=== PATIENT | female | born 1985 | race Caucasian/White ===

== ENCOUNTER 2016-10-05 15:13 | Emergency (ER) | payer SELFPAY ==
[2016-10-05] MEDS ORDERED: LIDOCAINE 2% VISCOUS SOLN 20 ML UDCUP PO ONE (15:37)
[2016-10-05] MEDS ORDERED: METOCLOPRAMIDE HCL ORAL SOLN 10 MG/10 ML UDCUP PO ONE (15:37)
[2016-10-05] MEDS ORDERED: MAG HYDROX/AL HYDROX/SIMETH SUSP 30 ML UDCUP PO ONE (15:37)
--- NOTE | 2016-10-05 15:39 | ER Document Report ---
ED Medical Screen (RME) - General Chief Complaint: Epigastric pain and back pain Stated Complaint: ABDOMINAL PAIN Time Seen by Provider: 10/05/16 15:37 Notes: Patient states that she started this morning with epigastric pain. She states that she is also had vomiting. She states she can eat normally. She states the pain is coming and going. She denies previous episodes of the pain. She denies previous abdominal surgery. No problems with urination or bowel movements. TRAVEL OUTSIDE OF THE [place] IN LAST 30 DAYS: No - Related Data Allergies/Adverse Reactions: No Known Allergies Allergy (Unverified 10/05/16 15:20) Past Medical History Renal/ Medical History: Denies: Hx Peritoneal Dialysis Physical Exam - Vital signs Vitals: Temp Pulse Resp BP Pulse Ox 98.7 F 101 H 12 146/81 H 97 10/05/16 15:17 10/05/16 15:17 10/05/16 15:17 10/05/16 15:17 10/05/16 15:17 Course - Vital Signs Vital signs: Temp Pulse Resp BP Pulse Ox 98.7 F 101 H 12 146/81 H 97 10/05/16 15:17 10/05/16 15:17 10/05/16 15:17 10/05/16 15:17 10/05/16 15:17
[2016-10-05 16:14] LABS: ABSOLUTE LYMPHOCYTES (AUTO) 0.9 10^3/uL (0.5-4.7); ABSOLUTE MONOCYTES (AUTO) 0.5 10^3/uL (0.1-1.4); ABSOLUTE NEUT (AUTO) 4.4 10^3/uL (1.7-8.2); BASOPHILS % (AUTO) 0.5 % (0-2); EOSINOPHILS % (AUTO) 0.7 % (0-6); HEMOGLOBIN 13.4 g/dL (12.0-15.5); HGB HCT DIFFERENCE 2.2; LYMPHOCYTES % (AUTO) 15.9 % (13-45); MEAN CORPUSCULAR HEMOGLOBIN 30.4 pg (27.0-33.4); MEAN CORPUSCULAR HGB CONC 35.2 g/dL (32.0-36.0); MEAN CORPUSCULAR VOLUME 86 fl (80-97); MONOCYTES % (AUTO) 8.2 % (3-13); RED BLOOD COUNT 4.39 10^6/uL (3.72-5.28); SEGMENTED NEUTROPHILS % (AUTO) 74.7 % (42-78); WHITE BLOOD COUNT 5.9 10^3/uL (4.0-10.5)
[2016-10-05 16:18] LABS: APPEARANCE,URINE CLEAR; BILIRUBIN,URINE NEGATIVE (NEGATIVE); GLUCOSE, URINE NEGATIVE (NEGATIVE); KETONES,URINE NEGATIVE (NEGATIVE); LEUKOCYTE ESTERASE,URINE NEGATIVE (NEGATIVE); NITRITE,URINE NEGATIVE (NEGATIVE); PROTEIN,URINE NEGATIVE (NEGATIVE); URINE SPECIFIC GRAVITY 1.008
[2016-10-05 16:32] LABS: ALANINE AMINOTRANSFERASE 498 U/L (9-52); ALBUMIN 4.7 g/dL (3.5-5.0); ALKALINE PHOSPHATASE 101 U/L (38-126); ANION GAP 12 (5-19); BILIRUBIN,DIRECT 0.9 mg/dL (0.0-0.4); BILIRUBIN,TOTAL 1.5 mg/dL (0.2-1.3); BLOOD UREA NITROGEN 6 mg/dL (7-20); CALCIUM 9.6 mg/dL (8.4-10.2); CARBON DIOXIDE 25 mmol/L (22-30); CHLORIDE 106 mmol/L (98-107); CREATININE RESULT 0.74 mg/dL (0.52-1.25); GLUCOSE 119 mg/dL (75-110); LIPASE 236.3 U/L (23-300); POTASSIUM 4.1 mmol/L (3.6-5.0); SODIUM 142.8 mmol/L (137-145); TOTAL PROTEIN 8.3 g/dL (6.3-8.2)
--- NOTE | 2016-10-05 16:39 | ER Document Report ---
ED GI/ - General Mode of Arrival: Ambulatory Information source: Patient TRAVEL OUTSIDE OF THE [place] IN LAST 30 DAYS: No - HPI Patient complains to provider of: Abdominal pain, Vomiting. No: Diarrhea Onset: This morning Timing/Duration: Intermittent Associated symptoms: Other - see above <JACK PAEZ - Last Filed: 10/05/16 17:37> <EPI LEAL - Last Filed: 10/05/16 20:25> <EDWINA LANGSTON - Last Filed: 10/05/16 21:03> - General Chief Complaint: Epigastric pain and back pain Stated Complaint: ABDOMINAL PAIN Time Seen by Provider: 10/05/16 15:37 Notes: Patient is a 31 year old female who presents to the ED with complaints of severe intermittent epigastric abdominal pain that radiates through her back with onset this morning. Patient states she feels a lot of gas in her stomach. Patient states she has nausea and vomiting and her pain was relieved after she had the episode of vomiting. Patient states she has never had this pain before. Patient denies diarrhea. Patient adds she feels like she has heart burn and states the reflux feels like it goes up into her throat. (JACK PAEZ) EMILY language line used as healthcare interpreter. (EDWINA LANGSTON) - Related Data Allergies/Adverse Reactions: No Known Allergies Allergy (Unverified 10/05/16 15:20) Past Medical History - General Information source: Patient - Social History Smoking Status: Never Smoker Chew tobacco use (# tins/day): No Frequency of alcohol use: None Drug Abuse: None Family History: Reviewed & Not Pertinent Renal/ Medical History: Denies: Hx Peritoneal Dialysis - Immunizations Hx Diphtheria, Pertussis, Tetanus Vaccination: Yes <JACK PAEZ - Last Filed: 10/05/16 17:37> Review of Systems - Review of Systems Constitutional: No symptoms reported EENT: No symptoms reported Cardiovascular: No symptoms reported Respiratory: No symptoms reported Gastrointestinal: See HPI, Abdominal pain, Nausea, Vomiting. denies: Diarrhea Genitourinary: No symptoms reported Female Genitourinary: No symptoms reported Musculoskeletal: No symptoms reported Skin: No symptoms reported Hematologic/Lymphatic: No symptoms reported Neurological/Psychological: No symptoms reported <JACK PAEZ - Last Filed: 10/05/16 17:37> Physical Exam <JACK PAEZ - Last Filed: 10/05/16 17:37> <EPI LEAL - Last Filed: 10/05/16 20:25> <EDWINA LANGSTON - Last Filed: 10/05/16 21:03> - Vital signs Vitals: Temp Pulse Resp BP Pulse Ox 98.7 F 101 H 12 146/81 H 97 10/05/16 15:17 10/05/16 15:17 10/05/16 15:17 10/05/16 15:17 10/05/16 15:17 - Notes Notes: GENERAL: Alert, interacts well. No acute distress. HEAD: Normocephalic, atraumatic. EYES: Pupils equal, round, and reactive to light. Extraocular movements intact. ENT: Oral mucosa moist, tongue midline. NECK: Full range of motion. Supple. Trachea midline. LUNGS: Clear to auscultation bilaterally, no wheezes, rales, or rhonchi. No respiratory distress. HEART: Regular rate and rhythm. No murmurs, gallops, or rubs. ABDOMEN: Soft, non-tender. Non-distended. Bowel sounds present in all 4 quadrants. Patients pain was improved with pressure and palpation EXTREMITIES: Moves all 4 extremities spontaneously. No edema, radial 2/4 bilaterally. No cyanosis. NEUROLOGICAL: Alert and oriented x3. Normal speech. PSYCH: Normal affect, normal mood. SKIN: Warm, dry, normal turgor. No rashes or lesions noted. (JACK PAEZ) Course - Laboratory Result Diagrams: 10/05/16 16:03 10/05/16 16:03 <JACK PAEZ - Last Filed: 10/05/16 17:37> - Laboratory Result Diagrams: 10/05/16 16:03 10/05/16 16:03 - Consults [facility] Transfer Line Time consulted: 20:02 Consulted provider: will see as inpatient - medical floor at [facility] <EPI LEAL - Last Filed: 10/05/16 20:25> - Laboratory Result Diagrams: 10/05/16 16:03 10/05/16 16:03 <EDWINA LANGSTON - Last Filed: 10/05/16 21:03> - Re-evaluation Re-evalutation: 10/05/16 20:43 CBC unremarkable, CMP is concerning for possible obstruction with elevated total bilirubin 1.5, direct bilirubin 0.9, AST elevated at 1006, ALT elevated at 498, lipase is reassuringly normal, alkaline phosphatase normal at 101. This is not atypical obstructive pattern but is concerning as the ultrasound of the abdomen shows dilated common bile duct with cholelithiasis, no evidence of acute cholecystitis. As we do not have GI on-call at our hospital I did consult with Dr. Knott at [facility] who agreed to accept the patient to her service. They do have GI available. Patient will be transferred for further evaluation and possible ERCP for obstructing stone. Pain is decreased but not completely relieved. (EDWINA LANGSTON) - Vital Signs Vital signs: Temp Pulse Resp BP Pulse Ox 98.7 F 101 H 12 146/81 H 97 10/05/16 15:17 10/05/16 15:17 10/05/16 15:17 10/05/16 15:17 10/05/16 15:17 - Laboratory Laboratory results interpreted by me: 10/05/16 10/05/16 10/05/16 15:45 16:03 16:03 BUN 6 L Glucose 119 H Total Bilirubin 1.5 H Direct Bilirubin 0.9 H AST 1006 H ALT 498 H Total Protein 8.3 H Urine Urobilinogen 2.0 H Acetaminophen < 10 L - Consults [facility] Transfer Line Reason for consultation: 10/05/16 20:02 Contacted [facility] transfer line for possible transfer. They will contact GI and call back. 10/05/16 20:25 Call back from [facility]. Spoke with Dr. Pretty who accepts the patient for transfer to [facility] medical floor. (EPI LEAL) Discharge <JACK PAEZ - Last Filed: 10/05/16 17:37> <EPI LEAL - Last Filed: 10/05/16 20:25> <EDWINA LANGSTON - Last Filed: 10/05/16 21:03> - Discharge Clinical Impression: Elevated transaminase level, Dilated common bile duct, Suspect choledocholithiasis Condition: Fair Disposition: [facility] Scribe Attestation: 10/05/16 21:03 I personally performed the services described in the documentation, reviewed and edited the documentation which was dictated to the scribe in my presence, and it accurately records my words and actions. (EDWINA LANGSTON) Scribe Documentation - Scribe Written by Allison:: allison Pringle, 10/05/2016, 1740 acting as scribe for :: Nathalia <JACK PAEZ - Last Filed: 10/05/16 17:37>
[2016-10-05 16:40] LABS: ASPARTATE AMINO TRANSFERASE 1006 U/L (14-36)
--- NOTE | 2016-10-05 18:57 | RADIOLOGY REPORT (SQ) ---
EXAM DESCRIPTION: U/S ABDOMEN COMPLETE W/DOPPLER COMPLETED DATE/TIME: 10/05/2016 6:27 pm REASON FOR STUDY: epigastric pain COMPARISON: None. TECHNIQUE: Dynamic and static grayscale images acquired of the abdomen and recorded on PACS. Additio nal selected color Doppler and spectral images recorded. LIMITATIONS: None. FINDINGS: PANCREAS: Head and body of the pancreas are normal. The tail was obscured by gas. LIVER: 15.1 cm. Normal echotexture. LIVER VASCULATURE: Normal directional flow of the main portal vein and hepatic veins. GALLBLADDER: Multiple gallstones are present. There is no wall thickening. There is no pericholecys tic fluid. ULTRASOUND-DETECTED SALAZAR'S SIGN: Negative. INTRAHEPATIC DUCTS AND COMMON DUCT: Common bile duct is dilated at 8 mm. There is no significant int rahepatic ductal dilatation, however. INFERIOR VENA CAVA: Normal flow. AORTA: No aneurysm. RIGHT KIDNEY: Normal size, 9.2 cm. Normal echogenicity. No solid or suspicious masses. No hydr onephrosis. No calcifications. LEFT KIDNEY: Normal size, 9.1 cm. Normal echogenicity. No solid or suspicious masses. No hydro nephrosis. No calcifications. SPLEEN: Normal size, 10.9 cm. No masses. PERITONEAL AND PLEURAL SPACES: No ascites or effusions. OTHER: No other significant finding. IMPRESSION: Cholelithiasis with dilated common bile duct. There is no evidence of acute cholecystit is. TECHNICAL DOCUMENTATION: JOB ID: [id number] [employer]- All Rights Reserved
[2016-10-06 04:56] LABS: ABSOLUTE BASOPHILS # (AUTO) 0.1 10^3/uL (0.0-0.2); ABSOLUTE EOSINOPHILS # (AUTO) 0.2 10^3/uL (0.0-0.6); ABSOLUTE LYMPHOCYTES (AUTO) 1.4 10^3/uL (0.5-4.7); ABSOLUTE MONOCYTES (AUTO) 0.5 10^3/uL (0.1-1.4); ABSOLUTE NEUT (AUTO) 3.7 10^3/uL (1.7-8.2); EOSINOPHILS % (AUTO) 2.8 % (0-6); HEMATOCRIT 38.5 % (36.0-47.0); HEMOGLOBIN 13.2 g/dL (12.0-15.5); HGB HCT DIFFERENCE 1.1; MEAN CORPUSCULAR HEMOGLOBIN 29.9 pg (27.0-33.4); MEAN CORPUSCULAR HGB CONC 34.3 g/dL (32.0-36.0); MEAN CORPUSCULAR VOLUME 87 fl (80-97); MONOCYTES % (AUTO) 8.3 % (3-13); RED BLOOD COUNT 4.42 10^6/uL (3.72-5.28); RED CELL DISTRIBUTION WIDTH 13.3 % (11.5-14.0); SEGMENTED NEUTROPHILS % (AUTO) 63.9 % (42-78); WHITE BLOOD COUNT 5.9 10^3/uL (4.0-10.5)
[2016-10-06 05:29] LABS: ALANINE AMINOTRANSFERASE 546 U/L (9-52); ALBUMIN 4.5 g/dL (3.5-5.0); ALKALINE PHOSPHATASE 117 U/L (38-126); ANION GAP 11 (5-19); ASPARTATE AMINO TRANSFERASE 534 U/L (14-36); BILIRUBIN,DIRECT 0.4 mg/dL (0.0-0.4); BILIRUBIN,TOTAL 0.9 mg/dL (0.2-1.3); BLOOD UREA NITROGEN 5 mg/dL (7-20); CALCIUM 9.3 mg/dL (8.4-10.2); CARBON DIOXIDE 25 mmol/L (22-30); CHLORIDE 108 mmol/L (98-107); CREATININE RESULT 0.73 mg/dL (0.52-1.25); GLUCOSE 97 mg/dL (75-110); POTASSIUM 4.4 mmol/L (3.6-5.0); SODIUM 143.7 mmol/L (137-145); TOTAL PROTEIN 7.9 g/dL (6.3-8.2)
[2016-10-06 15:07] VITALS: BP 130/72
--- NOTE | 2016-10-06 15:08 | ER Document Report ---
Doctor's Note Notes: 10/06/16 15:08 Patient has been reevaluated stable for transfer
== END 2016-10-06 15:17 | disposition short-term general hospital (02) ==
LOC: ER 15:13
DX: K80.20 Calculus of gallbladder without cholecystitis without obstruction (principal); R74.0 Nonspecific elevation of levels of transaminase and lactic acid dehydrogenase [LDH]; K21.9 Gastro-esophageal reflux disease without esophagitis; R10.13 Epigastric pain; R11.2 Nausea with vomiting, unspecified
CPT/HCPCS: 99285; 36415; 83690; 80307; 85025; 81025; 80053; 81001; 76700; 93976; J3490

== ENCOUNTER 2017-01-03 11:02 | Emergency (ER) | payer SELFPAY ==
--- NOTE | 2017-01-03 12:06 | ER Document Report ---
ED GI/ - General Mode of Arrival: Ambulatory Information source: Patient TRAVEL OUTSIDE OF THE [place] IN LAST 30 DAYS: No <TRISTAN MONTAGUE - Last Filed: 01/03/17 12:43> <FLACO TORREZ - Last Filed: 01/03/17 14:58> - General Chief Complaint: Vag Bleeding, +preg <12wks Stated Complaint: VAGINAL BLEEDING Time Seen by Provider: 01/03/17 11:51 Notes: Patient is a 31 year old female that presents to the emergency department today with complaints of vaginal spotting yesterday. Patient was seen her on Oct 05 for choledocolithiasis and transferred to [facility] where she had a cholycystectomy on Oct 09. Patient states that her last menstrual period was October 31. Patient states she had no cramping associated with her vaginal spotting. (TRISTAN MONTAGUE) - Related Data Allergies/Adverse Reactions: No Known Allergies Allergy (Unverified 01/03/17 11:17) Past Medical History - General Information source: Patient - Social History Smoking Status: Never Smoker Cigarette use (# per day): No Frequency of alcohol use: None Drug Abuse: None Lives with: Family Family History: Reviewed & Not Pertinent Patient has suicidal ideation: No Patient has homicidal ideation: No - Medical History Medical History: Negative Past Surgical History: Reports: Hx Cholecystectomy - Immunizations Hx Diphtheria, Pertussis, Tetanus Vaccination: Yes <TRISTAN MONTAGUE - Last Filed: 01/03/17 12:43> Review of Systems - Review of Systems Constitutional: No symptoms reported EENT: No symptoms reported Cardiovascular: No symptoms reported Respiratory: No symptoms reported Gastrointestinal: No symptoms reported Genitourinary: No symptoms reported Female Genitourinary: See HPI, Last menstrual period - Oct 31, Vaginal bleeding Musculoskeletal: No symptoms reported Skin: No symptoms reported Hematologic/Lymphatic: No symptoms reported Neurological/Psychological: No symptoms reported -: Yes All other systems reviewed and negative <TRISTAN MONTAGUE - Last Filed: 01/03/17 12:43> Physical Exam <TRISTAN MONTAGUE - Last Filed: 01/03/17 12:43> <FLACO TORREZ - Last Filed: 01/03/17 14:58> - Vital signs Vitals: Temp Pulse Resp BP Pulse Ox 98.3 F 97 16 147/83 H 99 01/03/17 11:17 01/03/17 11:17 01/03/17 11:17 01/03/17 11:17 01/03/17 11:17 - Notes Notes: Physical Exam: General: Alert, appears well. HEENT: Normocephalic. Atraumatic. PERRL. Extraocular movements intact. Oropharynx clear. Neck: Supple. Non-tender. Respiratory: No respiratory distress. Clear and equal breath sounds bilaterally. Cardiovascular: Regular rate and rhythm. Abdominal: Normal Inspection. Non-tender. No distension. Normal Bowel Sounds. Back: Non-tender. No deformity or step off. Extremities: Moves all four extremities. Upper extremities: Normal inspection. Normal ROM. Lower extremities: Normal inspection. No edema. Normal ROM. Neurological: Normal cognition. AAOx4. Normal speech. Psychological: Normal affect. Normal Mood. Skin: Warm. Dry. Normal color. (TRISTAN MONTAGUE) Course - Laboratory Result Diagrams: 01/03/17 12:04 <TRISTAN MONTAGUE - Last Filed: 01/03/17 12:43> - Laboratory Result Diagrams: 01/03/17 12:04 - Diagnostic Test Radiology reviewed: Reports reviewed - Ultrasound shows an 8 week 6 day IUP with heart rate of 171, no bleed. <FLACO TORREZ - Last Filed: 01/03/17 14:58> - Vital Signs Vital signs: Temp Pulse Resp BP Pulse Ox 98.3 F 97 16 147/83 H 99 01/03/17 11:17 01/03/17 11:17 01/03/17 11:17 01/03/17 11:17 01/03/17 11:17 - Laboratory Laboratory results interpreted by me: 01/03/17 01/03/17 12:04 12:55 Beta HCG, Quant 009959.00 H Urine Blood MODERATE H Ur Leukocyte Esterase TRACE H Discharge <TRISTAN MONTAGUE - Last Filed: 01/03/17 12:43> <FLACO TORREZ - Last Filed: 01/03/17 14:58> - Discharge Clinical Impression: Bleeding in early Intrauterine normal Qualifiers: Trimester: first trimester Qualified Code(s): Z34.91 - Encounter for supervision of normal , unspecified, first trimester Condition: Stable Disposition: HOME, SELF-CARE Additional Instructions: Bleeding During Early : You have been evaluated for passing blood while . While we take this symptom very seriously, most women with your degree of bleeding will go on to have a perfectly normal baby. At this time, there is no indication that a miscarriage will occur. (A miscarriage occurs when the fetus is abnormal. There is no medicine or treatment to prevent it.) You should rest in bed until the symptoms have resolved. Do not douche or have sex for at least a week, or until OK'd by the doctor. Don't use tampons. Call the doctor or return for re-examination if there is an increase in bleeding or cramping, extreme weakness, fainting, new abdominal pain, fever, or passage of tissue. YOUR ULTRASOUND SHOWS AN 8week 6day WITH A HEART RATE OF 171. NO ABNORMALITIES WERE SEEN. FOLLOW UP WITH [facility] THIS WEEK FOR RECHECK. RETURN TO THE EMERGENCY ROOM IF ANY NEW OR WORSENING SYMPTOMS. Referrals: [facility] [Provider Group] - Follow up in 3-5 days Narinder Attestation: 01/03/17 14:57 I personally performed the services described in the documentation, reviewed and edited the documentation which was dictated to the scribe in my presence, and it accurately records my words and actions. (FLACO TORREZ) Scribe Documentation - Scribe Written by Narinder:: Narinder Wynne, 01/03/2017 1225 acting as scribe for :: Cesar <TRISTAN MONTAGUE - Last Filed: 01/03/17 12:43>
[2017-01-03 12:22] LABS: ABSOLUTE BASOPHILS # (AUTO) 0.1 10^3/uL (0.0-0.2); ABSOLUTE EOSINOPHILS # (AUTO) 0.1 10^3/uL (0.0-0.6); ABSOLUTE LYMPHOCYTES (AUTO) 1.5 10^3/uL (0.5-4.7); ABSOLUTE MONOCYTES (AUTO) 0.5 10^3/uL (0.1-1.4); ABSOLUTE NEUT (AUTO) 7.4 10^3/uL (1.7-8.2); BASOPHILS % (AUTO) 0.7 % (0-2); EOSINOPHILS % (AUTO) 0.8 % (0-6); HEMATOCRIT 38.4 % (36.0-47.0); HEMOGLOBIN 13.5 g/dL (12.0-15.5); HGB HCT DIFFERENCE 2.1; LYMPHOCYTES % (AUTO) 15.8 % (13-45); MEAN CORPUSCULAR HEMOGLOBIN 29.9 pg (27.0-33.4); MEAN CORPUSCULAR HGB CONC 35.3 g/dL (32.0-36.0); MEAN CORPUSCULAR VOLUME 85 fl (80-97); RED BLOOD COUNT 4.53 10^6/uL (3.72-5.28); RED CELL DISTRIBUTION WIDTH 13.4 % (11.5-14.0); SEGMENTED NEUTROPHILS % (AUTO) 77.7 % (42-78); WHITE BLOOD COUNT 9.5 10^3/uL (4.0-10.5)
[2017-01-03 13:18] LABS: AMORPHOUS SEDIMENT,URINE TRACE /HPF; APPEARANCE,URINE TURBID; BILIRUBIN,URINE NEGATIVE (NEGATIVE); GLUCOSE, URINE NEGATIVE (NEGATIVE); KETONES,URINE NEGATIVE (NEGATIVE); LEUKOCYTE ESTERASE,URINE TRACE (NEGATIVE); NITRITE,URINE NEGATIVE (NEGATIVE); PROTEIN,URINE NEGATIVE (NEGATIVE); URINE SPECIFIC GRAVITY 1.011; UROBILINOGEN,URINE NEGATIVE mg/dL (<2.0)
--- NOTE | 2017-01-03 14:28 | RADIOLOGY REPORT (SQ) ---
EXAM DESCRIPTION: U/S OB TRANSVAGINAL W/O DOP COMPLETED DATE/TIME: 01/03/2017 1:41 pm REASON FOR STUDY: spotting COMPARISON: None. TECHNIQUE: Transvaginal static and realtime grayscale images acquired of the pelvis. Additional rylie cted spectral and color Doppler images recorded. All images stored on PACs. bHCG: Not available. LIMITATIONS: None. FINDINGS: FETUS: Living intrauterine . EGA: 8 weeks 6 days TJ: 08/09/2017 FHR: 171 beats per minute. SUBCHORIONIC BLEED: No. SIZE OF BLEED: Not applicable. UTERUS: No masses. No anomalies. CERVICAL LENGTH: 3.2 cm Closed. RIGHT ADNEXA: Normal ovary with normal vascular flow. No adnexal free fluid. Simple cyst(s) measuring 2.4 cm. LEFT ADNEXA: Normal ovary with normal vascular flow. No adnexal free fluid. No adnexal masses. FREE FLUID: None. OTHER: No other significant finding. IMPRESSION: LIVING INTRAUTERINE . EGA 8 weeks 6 days. Trimester of : First - 0 to 13 weeks. TECHNICAL DOCUMENTATION: JOB ID: [id number] [employer]- All Rights Reserved
[2017-01-03 15:11] VITALS: BP 135/72
== END 2017-01-03 15:08 | disposition home or self-care (01) ==
LOC: ER 11:02
DX: O26.851 Spotting complicating pregnancy, first trimester (principal); Z3A.08 8 weeks gestation of pregnancy; Z90.49 Acquired absence of other specified parts of digestive tract
CPT/HCPCS: 36415; 76817; 81001; 84702; 85025; 86900; 86901; 99284

== ENCOUNTER 2017-02-01 17:31 | Emergency (ER) | payer SELFPAY ==
--- NOTE | 2017-02-01 17:50 | ER Document Report ---
ED Medical Screen (RME) - General Chief Complaint: Vag Bleeding, +preg <12wks Stated Complaint: VAGINAL SPOTTING Time Seen by Provider: 02/01/17 17:49 Notes: pt preg with lower abd pain and bleeding. TRAVEL OUTSIDE OF THE [place] IN LAST 30 DAYS: No - Related Data Allergies/Adverse Reactions: No Known Allergies Allergy (Verified 02/01/17 17:34) Past Medical History Renal/ Medical History: Denies: Hx Peritoneal Dialysis Past Surgical History: Reports: Hx Cholecystectomy - Immunizations Hx Diphtheria, Pertussis, Tetanus Vaccination: Yes Physical Exam - Vital signs Vitals: Temp Pulse Resp BP Pulse Ox 98.7 F 120 H 14 145/81 H 100 02/01/17 17:34 02/01/17 17:34 02/01/17 17:34 02/01/17 17:34 02/01/17 17:34 Course - Vital Signs Vital signs: Temp Pulse Resp BP Pulse Ox 98.7 F 120 H 14 145/81 H 100 02/01/17 17:34 02/01/17 17:34 02/01/17 17:34 02/01/17 17:34 02/01/17 17:34
[2017-02-01 18:04] LABS: ABSOLUTE EOSINOPHILS # (AUTO) 0.3 10^3/uL (0.0-0.6); ABSOLUTE LYMPHOCYTES (AUTO) 1.7 10^3/uL (0.5-4.7); ABSOLUTE MONOCYTES (AUTO) 0.5 10^3/uL (0.1-1.4); BASOPHILS % (AUTO) 0.5 % (0-2); EOSINOPHILS % (AUTO) 2.8 % (0-6); HEMATOCRIT 35.8 % (36.0-47.0); HEMOGLOBIN 12.7 g/dL (12.0-15.5); HGB HCT DIFFERENCE 2.3; LYMPHOCYTES % (AUTO) 17.7 % (13-45); MEAN CORPUSCULAR HEMOGLOBIN 30.1 pg (27.0-33.4); MEAN CORPUSCULAR HGB CONC 35.5 g/dL (32.0-36.0); MEAN CORPUSCULAR VOLUME 85 fl (80-97); MONOCYTES % (AUTO) 5.4 % (3-13); RED BLOOD COUNT 4.22 10^6/uL (3.72-5.28); RED CELL DISTRIBUTION WIDTH 13.6 % (11.5-14.0); SEGMENTED NEUTROPHILS % (AUTO) 73.6 % (42-78); WHITE BLOOD COUNT 9.5 10^3/uL (4.0-10.5)
[2017-02-01 18:35] LABS: ALBUMIN 4.2 g/dL (3.5-5.0); ANION GAP 13 (5-19); ASPARTATE AMINO TRANSFERASE 21 U/L (14-36); BLOOD UREA NITROGEN 5 mg/dL (7-20); CALCIUM 9.6 mg/dL (8.4-10.2); CARBON DIOXIDE 24 mmol/L (22-30); CHLORIDE 104 mmol/L (98-107); CREATININE RESULT 0.54 mg/dL (0.52-1.25); GLUCOSE 112 mg/dL (75-110); SODIUM 140.8 mmol/L (137-145)
[2017-02-01 18:36] LABS: ALANINE AMINOTRANSFERASE 31 U/L (9-52); ALKALINE PHOSPHATASE 55 U/L (38-126); BILIRUBIN,DIRECT 0.3 mg/dL (0.0-0.4); BILIRUBIN,TOTAL 0.3 mg/dL (0.2-1.3); TOTAL PROTEIN 7.6 g/dL (6.3-8.2)
[2017-02-01 18:51] LABS: APPEARANCE,URINE CLEAR; BILIRUBIN,URINE NEGATIVE (NEGATIVE); GLUCOSE, URINE NEGATIVE (NEGATIVE); KETONES,URINE NEGATIVE (NEGATIVE); LEUKOCYTE ESTERASE,URINE NEGATIVE (NEGATIVE); NITRITE,URINE NEGATIVE (NEGATIVE); PROTEIN,URINE NEGATIVE (NEGATIVE); URINE SPECIFIC GRAVITY 1.003; UROBILINOGEN,URINE NEGATIVE mg/dL (<2.0)
--- NOTE | 2017-02-01 19:20 | ER Document Report ---
ED General - General Chief Complaint: Vag Bleeding, +preg <12wks Stated Complaint: VAGINAL SPOTTING Time Seen by Provider: 02/01/17 17:49 Notes: Patient is a 31-year-old at 12 weeks who presents with a small amount of vaginal bleeding. Patient states that she had a small spot of blood when she wiped earlier today but has not had any bleeding since that time. She denies any additional symptoms other than that small amount of vaginal bleeding. Specifically she denies any abdominal pain, fever, nausea or vomiting. She has not had any similar symptoms during this . She was seen at the health department and referred to the emergency department for further evaluation. She denies any abdominal trauma. The history and physical exam was obtained by the provider using Kiswahili. A formal hospital support staff was offered to the patient and any family at the bedside at the beginning of the encounter and was declined. TRAVEL OUTSIDE OF THE [place] IN LAST 30 DAYS: No - Related Data Allergies/Adverse Reactions: No Known Allergies Allergy (Verified 02/01/17 17:34) Past Medical History - General Information source: Patient - Social History Smoking Status: Never Smoker Frequency of alcohol use: None Drug Abuse: None Lives with: Spouse/Significant other Family History: Reviewed & Not Pertinent Patient has suicidal ideation: No Patient has homicidal ideation: No Renal/ Medical History: Denies: Hx Peritoneal Dialysis Past Surgical History: Reports: Hx Cholecystectomy - Immunizations Hx Diphtheria, Pertussis, Tetanus Vaccination: Yes Review of Systems - Review of Systems Notes: Constitutional: Negative for fever. HENT: Negative for sore throat. Eyes: Negative for visual changes. Cardiovascular: Negative for chest pain. Respiratory: Negative for shortness of breath. Gastrointestinal: Negative for abdominal pain, vomiting or diarrhea. Genitourinary: Negative for dysuria. Positive for vaginal bleeding Musculoskeletal: Negative for back pain. Skin: Negative for rash. Neurological: Negative for headaches, weakness or numbness. 10 point ROS negative except as marked above and in HPI. Physical Exam - Vital signs Vitals: Temp Pulse Resp BP Pulse Ox 98.7 F 120 H 14 145/81 H 100 02/01/17 17:34 02/01/17 17:34 02/01/17 17:34 02/01/17 17:34 02/01/17 17:34 Interpretation: Tachycardic Notes: PHYSICAL EXAMINATION: GENERAL: Well-appearing, well-nourished and in no acute distress. HEAD: Atraumatic, normocephalic. EYES: Pupils equal round and reactive to light, extraocular movements intact, sclera anicteric, conjunctiva are normal. ENT: nares patent, oropharynx clear without exudates. Moist mucous membranes. NECK: Normal range of motion, supple without lymphadenopathy LUNGS: Breath sounds clear to auscultation bilaterally and equal. No wheezes rales or rhonchi. HEART: Regular tachycardia without murmurs ABDOMEN: Soft, nontender, normoactive bowel sounds. No guarding, no rebound. No masses appreciated. EXTREMITIES: Normal range of motion, no pitting or edema. No cyanosis. NEUROLOGICAL: No focal neurological deficits. Moves all extremities spontaneously and on command. PSYCH: Normal mood, normal affect. SKIN: Warm, Dry, normal turgor, no rashes or lesions noted. Course - Re-evaluation Re-evalutation: 02/01/17 19:21 Patient presents with a very small amount of vaginal bleeding in the setting of a known intrauterine confirmed on ultrasound approximately 1 month ago. No active bleeding at time of presentation. She is Rh positive. Patient' s abdominal exam is otherwise benign without any focal tenderness. I do not suspect an acute appendicitis, pyelonephritis, cystitis, or bowel obstruction. Bedside ultrasound does show a living intrauterine , heart rate of 148, active movement. At this time will discharge with return precautions and follow-up recommendations. Verbal discharge instructions given a the bedside and opportunity for questions given. Medication warnings reviewed. Patient is in agreement with this plan and has verbalized understanding of return precautions and the need for primary care follow-up in the next 24-72 hours. - Vital Signs Vital signs: Temp Pulse Resp BP Pulse Ox 98.7 F 116 H 14 134/84 H 100 02/01/17 20:17 02/01/17 20:17 02/01/17 17:34 02/01/17 20:17 02/01/17 20:17 - Laboratory Result Diagrams: 02/01/17 17:54 02/01/17 17:54 Laboratory results interpreted by me: 02/01/17 02/01/17 02/01/17 17:54 17:54 17:55 Hct 35.8 L BUN 5 L Glucose 112 H Beta HCG, Quant 095035.00 H Urine Blood SMALL H - Diagnostic Test Radiology reviewed: Reports reviewed Discharge - Discharge Clinical Impression: Vaginal bleeding in Condition: Good Disposition: HOME, SELF-CARE Additional Instructions: Your ultrasound today shows a living intrauterine . You do have a small subchorionic hemorrhage. Many pregnancies with this complication can go on to become normal pregnancies. 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 Please return if you develop severe abdominal pain, bleeding that goes through more than 2 pads for more than 2 hours, pass out, or have any other symptoms that are concerning to you. Please follow-up closely with your OBGYN regarding todays visit.
--- NOTE | 2017-02-01 20:34 | RADIOLOGY REPORT (SQ) ---
EXAM DESCRIPTION: U/S [id number] TRNABD 1GES W/ODOP COMPLETED DATE/TIME: 02/01/2017 8:22 pm REASON FOR STUDY: PREG/PAIN/BLEEDING COMPARISON: 01/03/2017 TECHNIQUE: Transabdominal static and realtime grayscale images acquired of the pelvis. Additional se lected spectral and color Doppler images recorded. All images stored on PACs. bHCG: Not available LIMITATIONS: None. FINDINGS: FETUS: Living intrauterine . EGA: 13 weeks 2 days TJ: 08/07/2017 FHR: 149 beats per minute. SUBCHORIONIC BLEED: No SIZE OF BLEED: Not applicable. UTERUS: No masses. No anomalies. CERVICAL LENGTH: 5.8 cm Closed. RIGHT ADNEXA: Right ovary was not visualized. No adnexal free fluid. No adnexal masses. LEFT ADNEXA: Left ovary was not visualized. No adnexal free fluid. No adnexal masses. FREE FLUID: None. OTHER: No other significant finding. IMPRESSION: LIVING INTRAUTERINE . EGA 13 weeks 2 days Trimester of : First - 0 to 13 weeks. TECHNICAL DOCUMENTATION: JOB ID: [id number] [employer]- All Rights Reserved
[2017-02-01 20:38] VITALS: BP 134/84
== END 2017-02-01 20:35 | disposition home or self-care (01) ==
LOC: ER 17:31
DX: O26.851 Spotting complicating pregnancy, first trimester (principal); Z3A.12 12 weeks gestation of pregnancy
CPT/HCPCS: 36415; 76801; 80053; 81001; 84702; 85025; 99284

== ENCOUNTER → 2017-03-21 | Outpatient (CLI) | payer SELFPAY ==
--- NOTE | 2017-03-21 14:54 | RADIOLOGY REPORT (SQ) ---
EXAM DESCRIPTION: U/S OB 14+ TRNABD 1GES W/O DOP COMPLETED DATE/TIME: 03/21/2017 1:49 pm REASON FOR STUDY: ENCTR FOR SUPERVISION OF OTHER NORMAL , 2ND TRIMESTER (Z34.82) Z34.82 EN COUNTER FOR SUPRVSN OF NORMAL , SECOND TRI COMPARISON: None. TECHNIQUE: Static and Dynamic grayscale imaging performed of gravid uterus using transabdominal appr oach. Additional selected color Doppler and spectral images recorded. All stored on PACS. LIMITATIONS: None. FINDINGS: EGA: 20 weeks 1 day TJ: 08/07/2017 EFW: 358 g grams PERCENTILE: Not applicable. Fetus less than or equal to 20 weeks gestation. AMY: 3.2 PLACENTA: Posterior. GRADE: I PRESENTATION: Breech. ANATOMY: HEART RATE: 152 beats per minute. FOUR CHAMBER HEART: Visualized. THREE VESSEL CORD: Yes. CORD INSERTION: Visualized. KIDNEYS AND BLADDER: Visualized. Appear normal. STOMACH: Visualized. Appears normal. SPINE: Normal as visualized. BRAIN AND LATERAL VENTRICLES: Visualized. Appear normal. OTHER: No other significant finding. MATERNAL ADNEXA: Maternal ovaries not visualized. CERVICAL LENGTH: 4.1 cm Closed. OTHER: No other significant finding. IMPRESSION: LIVING INTRAUTERINE . ESTIMATED GESTATIONAL AGE 20 weeks 1 day NO VISUALIZED ANOMALIES. Trimester of : Second trimester - 13 weeks 1 day to 27 weeks 6 days. TECHNICAL DOCUMENTATION: JOB ID: [id number] [employer]- All Rights Reserved
== END ==
LOC: RAD 12:52
PROVIDERS: ATTEND Nurse Practitioner Women's Health
DX: Z34.82 Encounter for supervision of other normal pregnancy, second trimester (principal)
CPT/HCPCS: 76805

== ENCOUNTER 2017-04-16 13:18 | Emergency (ER) | payer MEDICAID ==
[2017-04-16 13:24] VITALS: BP 127/71
[2017-04-16] MEDS ORDERED: NORMAL SALINE 1000 ML 1,000 ML IV ONE (13:42)
--- NOTE | 2017-04-16 13:43 | ER Document Report ---
ED Medical Screen (RME) - General Chief Complaint: Cough Stated Complaint: COUGH,SORE THROAT,CONGESTION Time Seen by Provider: 04/16/17 13:41 Mode of Arrival: Ambulatory Information source: Patient TRAVEL OUTSIDE OF THE [place] IN LAST 30 DAYS: No - HPI Patient complains to provider of: cough, CP, sore throat Onset: Yesterday - pt is approx 23 weeks and has been having cough, intermittent CP with cough, and sore throat - Related Data Allergies/Adverse Reactions: No Known Allergies Allergy (Verified 04/16/17 13:19) Past Medical History Renal/ Medical History: Denies: Hx Peritoneal Dialysis Past Surgical History: Reports: Hx Cholecystectomy - Immunizations Hx Diphtheria, Pertussis, Tetanus Vaccination: Yes Physical Exam - Vital signs Vitals: Temp Pulse Resp BP Pulse Ox 99.1 F 136 H 20 127/71 H 99 04/16/17 13:21 04/16/17 13:21 04/16/17 13:21 04/16/17 13:21 04/16/17 13:21 Course - Vital Signs Vital signs: Temp Pulse Resp BP Pulse Ox 99.1 F 136 H 20 127/71 H 99 04/16/17 13:21 04/16/17 13:21 04/16/17 13:21 04/16/17 13:21 04/16/17 13:21
[2017-04-16 15:04] LABS: ABSOLUTE EOSINOPHILS # (AUTO) 0.1 10^3/uL (0.0-0.6); ABSOLUTE LYMPHOCYTES (AUTO) 0.8 10^3/uL (0.5-4.7); ABSOLUTE MONOCYTES (AUTO) 0.8 10^3/uL (0.1-1.4); ABSOLUTE NEUT (AUTO) 6.8 10^3/uL (1.7-8.2); BASOPHILS % (AUTO) 0.4 % (0-2); EOSINOPHILS % (AUTO) 1.4 % (0-6); HEMATOCRIT 34.2 % (36.0-47.0); HEMOGLOBIN 11.9 g/dL (12.0-15.5); LYMPHOCYTES % (AUTO) 9.6 % (13-45); MEAN CORPUSCULAR HEMOGLOBIN 29.8 pg (27.0-33.4); MEAN CORPUSCULAR HGB CONC 34.7 g/dL (32.0-36.0); MEAN CORPUSCULAR VOLUME 86 fl (80-97); MONOCYTES % (AUTO) 8.9 % (3-13); PLATELET COUNT 226 10^3/uL (150-450); RED BLOOD COUNT 3.98 10^6/uL (3.72-5.28); RED CELL DISTRIBUTION WIDTH 13.5 % (11.5-14.0); SEGMENTED NEUTROPHILS % (AUTO) 79.7 % (42-78); TOTAL CELLS COUNTED % (AUTO) 100 %; WHITE BLOOD COUNT 8.6 10^3/uL (4.0-10.5)
[2017-04-16 15:23] LABS: ALANINE AMINOTRANSFERASE 37 U/L (9-52); ALBUMIN 3.8 g/dL (3.5-5.0); ALKALINE PHOSPHATASE 80 U/L (38-126); ANION GAP 10 (5-19); ASPARTATE AMINO TRANSFERASE 28 U/L (14-36); BILIRUBIN,DIRECT 0.2 mg/dL (0.0-0.4); BILIRUBIN,TOTAL 0.2 mg/dL (0.2-1.3); BLOOD UREA NITROGEN 3 mg/dL (7-20); CALCIUM 9.1 mg/dL (8.4-10.2); CARBON DIOXIDE 24 mmol/L (22-30); CHLORIDE 104 mmol/L (98-107); GLUCOSE 82 mg/dL (75-110); POTASSIUM 3.5 mmol/L (3.6-5.0); SODIUM 137.7 mmol/L (137-145); TOTAL PROTEIN 7.1 g/dL (6.3-8.2)
[2017-04-16 16:26] LABS: APPEARANCE,URINE CLEAR; BILIRUBIN,URINE NEGATIVE (NEGATIVE); COLOR,URINE YELLOW; GLUCOSE, URINE 50 mg/dL (NEGATIVE); KETONES,URINE NEGATIVE (NEGATIVE); LEUKOCYTE ESTERASE,URINE NEGATIVE (NEGATIVE); NITRITE,URINE NEGATIVE (NEGATIVE); PROTEIN,URINE NEGATIVE (NEGATIVE); URINE SPECIFIC GRAVITY 1.008; UROBILINOGEN,URINE NEGATIVE mg/dL (<2.0)
[2017-04-16] MEDS ORDERED: OSELTAMIVIR PHOSPHATE 75 MG CAPSULE PO ONE (16:53)
[2017-04-16] MEDS ORDERED: IBUPROFEN 800 MG TABLET PO ONE (16:53)
[2017-04-16] MEDS ORDERED: ACETAMINOPHEN 325 MG TABLET PO ONE (16:53)
--- NOTE | 2017-04-16 16:55 | ER Document Report ---
ED General - General Mode of Arrival: Ambulatory TRAVEL OUTSIDE OF THE [place] IN LAST 30 DAYS: No <NINA HUNTLEY - Last Filed: 04/16/17 17:52> <EDWINA LANGSTON - Last Filed: 04/17/17 00:29> - General Chief Complaint: Cough Stated Complaint: COUGH,SORE THROAT,CONGESTION Time Seen by Provider: 04/16/17 13:41 Notes: Patient is a 31 year old female who is currently 23 weeks presents to the emergency department with EMILY at beside complaining of flu like symptoms including cough, body aches, sore throat and headaches onset yesterday. Patient denies any fevers. At bedside patient expressed concern for her baby. (NINA HUNTLEY) Additional history includes that her child was recently diagnosed with influenza as well as strep throat, also notes that the baby is moving. Denies vaginal bleeding. (EDWINA LANGSTON) - Related Data Allergies/Adverse Reactions: No Known Allergies Allergy (Verified 04/16/17 13:19) Past Medical History - General Information source: Patient - Social History Smoking Status: Never Smoker Chew tobacco use (# tins/day): No Frequency of alcohol use: None Drug Abuse: None Family History: Reviewed & Not Pertinent Patient has suicidal ideation: No Patient has homicidal ideation: No Past Surgical History: Reports: Hx Cholecystectomy - Immunizations Hx Diphtheria, Pertussis, Tetanus Vaccination: Yes <NINA HUNTLEY - Last Filed: 04/16/17 17:52> Review of Systems - Review of Systems Constitutional: No symptoms reported EENT: See HPI, Throat pain Cardiovascular: No symptoms reported Respiratory: See HPI, Cough Gastrointestinal: No symptoms reported Genitourinary: No symptoms reported Female Genitourinary: Musculoskeletal: See HPI Skin: No symptoms reported Hematologic/Lymphatic: No symptoms reported Neurological/Psychological: See HPI, Headaches -: Yes All other systems reviewed and negative <NINA HUNTLEY - Last Filed: 04/16/17 17:52> Physical Exam <NINA HUNTLEY - Last Filed: 04/16/17 17:52> <EDWINA LANGSTON - Last Filed: 04/17/17 00:29> - Vital signs Vitals: Temp Pulse Resp BP Pulse Ox 99.1 F 136 H 20 127/71 H 99 04/16/17 13:21 04/16/17 13:21 04/16/17 13:21 04/16/17 13:21 04/16/17 13:21 - Notes Notes: GENERAL: Alert, interacts well. No acute distress. HEAD: Normocephalic, atraumatic. EYES: Pupils equal, round, and reactive to light. Extraocular movements intact. ENT: Oral mucosa moist, tongue midline. NECK: Full range of motion. Supple. Trachea midline. LUNGS: Clear to auscultation bilaterally, no wheezes, rales, or rhonchi. No respiratory distress. HEART: Mild tachycardia. No murmurs, gallops, or rubs. ABDOMEN: Soft, non-tender. Gravid. Bowel sounds present in all 4 quadrants. EXTREMITIES: Moves all 4 extremities spontaneously. NEUROLOGICAL: Alert and oriented x3. Normal speech. PSYCH: Normal affect, normal mood. SKIN: Warm, dry, normal turgor. No rashes or lesions noted. (NINA HUNTLEY) Course - Laboratory Result Diagrams: 04/16/17 14:36 04/16/17 14:36 <NINA HUNTLEY - Last Filed: 04/16/17 17:52> - Laboratory Result Diagrams: 04/16/17 14:36 04/16/17 14:36 <EDWINA LANGSTON - Last Filed: 04/17/17 00:29> - Re-evaluation Re-evalutation: 04/16/17 16:56 CBC shows anemia which is very mild hemoglobin 11.9 consistent with , platelets normal, chemistries grossly unremarkable, urinalysis shows 50 glucose again consistent with , moderate blood but only 2 RBCs. No evidence of severe dehydration or infection. Strep swab is negative. Symptoms are consistent with influenza. Patient will be given Tamiflu and discharged home. ( EDWINA LANGSTON) - Vital Signs Vital signs: Temp Pulse Resp BP Pulse Ox 99.1 F 136 H 20 127/71 H 99 04/16/17 13:21 04/16/17 13:21 04/16/17 13:21 04/16/17 13:21 04/16/17 13:21 - Laboratory Laboratory results interpreted by me: 04/16/17 04/16/17 04/16/17 14:20 14:36 14:36 Hgb 11.9 L Hct 34.2 L Seg Neutrophils % 79.7 H Lymphocytes % 9.6 L Potassium 3.5 L BUN 3 L Creatinine 0.48 L Urine Glucose (UA) 50 H Urine Blood MODERATE H Discharge <NINA HUNTLEY - Last Filed: 04/16/17 17:52> <EDWINA LANGSTON - Last Filed: 04/17/17 00:29> - Discharge Clinical Impression: Influenza Qualifiers: Weeks of gestation: 23 weeks Qualified Code(s): Z3A.23 - 23 weeks gestation of Condition: Stable Disposition: HOME, SELF-CARE Additional Instructions: Drink plenty of fluids. Please use ibuprofen (Motrin or Advil) 600-800 mg every 8 hours as needed for pain or fever. You may also use acetaminophen (Tylenol) 1000 mg every 4-6 hours as needed for pain or fever. Please be aware that many medications contain acetaminophen, do not exceed a total of 1000 mg of acetaminophen every 6 hours. Please use nasal saline rinses such as a NetiPot or NeilMed Sinus Rinses. Prescriptions: Oseltamivir Phosphate 75 mg PO BID #9 capsule Scribe Attestation: 04/17/17 00:28 I personally performed the services described in the documentation, reviewed and edited the documentation which was dictated to the scribe in my presence, and it accurately records my words and actions. (EDWINA LANGSTON) Scribe Documentation - Scribe Written by Narinder:: Narinder Estrada, 04/16/2017 17:03 acting as scribe for :: Nathalia <NINA HUNTLEY - Last Filed: 04/16/17 17:52>
== END 2017-04-16 17:10 | disposition home or self-care (01) ==
LOC: ER 13:18
DX: O26.892 Other specified pregnancy related conditions, second trimester (principal); J11.1 Influenza due to unidentified influenza virus with other respiratory manifestations; Z3A.23 23 weeks gestation of pregnancy; Z90.49 Acquired absence of other specified parts of digestive tract
CPT/HCPCS: 99283; 96360; 36415; 87070; 87880; 85025; 80053; 81001; J3490 ×3; J7030

== ENCOUNTER → 2017-05-19 | Outpatient (CLI) | payer SELFPAY ==
--- NOTE | 2017-05-19 14:03 | RADIOLOGY REPORT (SQ) ---
EXAM DESCRIPTION: U/S OB 14+ TRNABD 1GES W/O DOP COMPLETED DATE/TIME: 05/19/2017 1:21 pm REASON FOR STUDY: ENCOUNTER FOR SUPERVISION OF OTHER NORMAL , THIRD TRIMESTER Z34.83 ENCOU NTER FOR SUPRVSN OF NORMAL , THIRD TRIM COMPARISON: None. TECHNIQUE: Limited transabdominal grayscale ultrasound for evaluation of specific requested obstetri trev parameters. LIMITATIONS: None. FINDINGS: CERVICAL LENGTH: 4 cm. Closed. AMY: 12.1 cm. FHR: 145 beats per minute. PRESENTATION: Cephalic. OTHER: No other significant findings. IMPRESSION: LIMITED OBSTETRICAL ULTRASOUND WITH MEASURED PARAMETERS DELINEATED ABOVE. Trimester of : Third trimester - 28 weeks to delivery. TECHNICAL DOCUMENTATION: JOB ID: [id number] [employer]- All Rights Reserved Reading location - IP/workstation name: [email or web address]
== END ==
LOC: RAD 12:45
PROVIDERS: ATTEND Nurse Practitioner Women's Health
DX: Z34.83 Encounter for supervision of other normal pregnancy, third trimester (principal)
CPT/HCPCS: 76805

== ENCOUNTER 2017-08-12 20:21 | Inpatient (IN) | payer SELFPAY ==
[2017-08-12] MEDS ORDERED: RINGERS SOLUTION,LACTATED 1,000 ML IV ONE (21:02)
[2017-08-12] MEDS ORDERED: PENICILLIN G POTASSIUM 5,000,000 UNIT in DEXTROSE 5%-WATER 100 ML IV ONE (21:02)
[2017-08-12] MEDS ORDERED: PENICILLIN G-K 5 MILLION UNIT VIAL ONE (21:07)
[2017-08-12 21:31] LABS: AMNISURE (ROM) POSITIVE (NEGATIVE)
[2017-08-12 21:32] LABS: APPEARANCE,URINE CLEAR; BILIRUBIN,URINE NEGATIVE (NEGATIVE); COLOR,URINE STRAW; GLUCOSE, URINE NEGATIVE (NEGATIVE); KETONES,URINE NEGATIVE (NEGATIVE); LEUKOCYTE ESTERASE,URINE NEGATIVE (NEGATIVE); NITRITE,URINE NEGATIVE (NEGATIVE); PROTEIN,URINE NEGATIVE (NEGATIVE); URINE SPECIFIC GRAVITY 1.003; UROBILINOGEN,URINE NEGATIVE mg/dL (<2.0)
--- NOTE | 2017-08-12 21:34 | Admission Physical ---
Datetime Report Generated by CPN: 08/12/2017 21:34 CURRENT ADMISSION Chief Complaint: Uterine Contractions Indication for Induction: Not Applicable; Gestational HTN Admit Impression : Term, Intrauterine ; Active Labor Admit Impression- Other: membrane status pending. Admit Plan: Admit to Unit ALLERGIES Medication Allergies: No Medication Allergies: No Known Allergies (04/16/2017) Latex: No Latex Allergies OBSTETRICAL HISTORY EDC: 08/09/2017 00:00 : 3 Para: 1 Term: 1 Gestational Diabetes: No Rh Sensitization: No Incompetent Cervix: No HARJEET: No Infertility: No ART Treatment: No Uterine Anomaly: No IUGR: No Hx Previous C/S: No Macrosomia: No Hx Loss/Stillborn: No PIH: No Hx : No Placenta Previa/Abruption: No Depression/PP Depression: No PTL/PROM: No Post Hemorrhage: No Current Procedures: Ultrasound Obstetrical History Comments: G1: 2007 G2: 2016 G3: current SEE RECORDS Alcohol: No Marijuana : No Cocaine: No Other Illicit Drugs: No Cigarettes: Never Smoker. 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 Heart Disease: No Hosp/Surgery: No Autoimmune Disorder: No Anesthetic Complications: No Kidney Disease: No Abnormal Pap Smear: No Neuro/Epilepsy: No Psychiatric Disorders: No Other Medical Diseases: No Hepatitis/Liver Disease: No Significant Family History: No Varicosities/Phlebitis: No Trauma/Violence : No Thyroid Dysfunction: No Medical History Comments: gallbladder removed 2017 INFECTIOUS HISTORY Gonorrhea: No Genital Herpes: No Chlamydia: No Tuberculosis: No Syphilis: No Hepatitis: No HIV/AIDS Exposure: No Rash or Viral Illness: No HPV: No PHYSICAL EXAM General: Normal HEENT: Normal Neurologic: Normal Thyroid: Deferred Heart: Normal Lungs: Normal Breast: Deferred Back: Normal Abdomen: Normal Genitourinary Exam: Normal Extremities: Normal DTRs: Normal Pelvic Type: Adequate Vital Signs: Reviewed VAGINAL EXAM Dilatation: 6 Effacement: 75 Station: -3 Contraction Comments: Q 5-6 FETUS A EGA: 40.3 Monitoring: External US FHR- Baseline: 125 Variability: Moderate 6-25bpm Accelerations: 15X15 Decelerations: None FHR Category: Category I Estimated Weight (gm): 4438 Presentation: Vertex Admit Comment: 3oyo at 40+3ega presents in active labor with limited care at [facility] and one appt at [facility]. EFW on 08/11 4438g 9#13oz. She thinks that she may ahve broken her water at approx 1800 but is unsure - amnisure and fern done. She reports contractions started at 1700 and are getting somewhat stronger. GBS positive. Denies h/o GDM or Type II DM. Admit to L_D and augment labor if needed. PCN for GBS. Anticipate . PLANS FOR LABOR AND DELIVERY Labor and Delivery: None Pain Management: Epidural Feeding Preference: Both Benefit of Breast Feed Discussed: Yes Circumcision: N/A INFORMED CONSENT Informed Consent Obtained: Vaginal Delivery; Risks, Benefits and Alternatives Discussed Signature: with User ID: [email or web address]
--- NOTE | 2017-08-12 21:36 | L&D Progress Notes ---
PROGRESS NOTES Datetime Report Generated by CPN: 08/12/2017 21:36 PROGRESS NOTE Informed Consent Obtained: Vaginal Delivery; Risks, Benefits and Alternatives Discussed Comment: Pt now reports membranes may have ruptured at approx 1100am today. VAGINAL EXAM Dilatation: 6 Effacement: 75 Station: -3 Contractions: Q 5-6 FETUS A Estimated Weight (gm): 4438 Presentation: Vertex SIGNATURE SIGNATURE: [id number];[id number] SIGNATURE: [id number] Signature: with User ID: [email or web address]
[2017-08-12 21:42] LABS: ABSOLUTE EOSINOPHILS # (AUTO) 0.1 10^3/uL (0.0-0.6); ABSOLUTE LYMPHOCYTES (AUTO) 1.7 10^3/uL (0.5-4.7); ABSOLUTE MONOCYTES (AUTO) 0.7 10^3/uL (0.1-1.4); ABSOLUTE NEUT (AUTO) 6.9 10^3/uL (1.7-8.2); BASOPHILS % (AUTO) 0.4 % (0-2); EOSINOPHILS % (AUTO) 0.9 % (0-6); HEMATOCRIT 31.1 % (36.0-47.0); HEMOGLOBIN 10.2 g/dL (12.0-15.5); MEAN CORPUSCULAR HEMOGLOBIN 22.4 pg (27.0-33.4); MEAN CORPUSCULAR HGB CONC 32.7 g/dL (32.0-36.0); MEAN CORPUSCULAR VOLUME 69 fl (80-97); MONOCYTES % (AUTO) 7.1 % (3-13); PLATELET COUNT 215 10^3/uL (150-450); RED BLOOD COUNT 4.54 10^6/uL (3.72-5.28); RED CELL DISTRIBUTION WIDTH 18.3 % (11.5-14.0); SEGMENTED NEUTROPHILS % (AUTO) 73.6 % (42-78); TOTAL CELLS COUNTED % (AUTO) 100 %; WHITE BLOOD COUNT 9.5 10^3/uL (4.0-10.5)
[2017-08-12 21:46] LABS: URINE AMPHETAMINES SCREEN NEGATIVE; URINE BARBITURATES SCREEN NEGATIVE; URINE BENZODIAZEPINES SCREEN NEGATIVE; URINE COCAINE SCREEN NEGATIVE; URINE MARIJUANA (THC) SCREEN NEGATIVE; URINE METHADONE SCREEN NEGATIVE; URINE PHENCYCLIDINE SCREEN NEGATIVE
[2017-08-12 21:49] LABS: UR PRO/CREAT RATIO RESULT 0.6 mg/mg (0.0-0.2); URINE CREATININE 25.4 mg/dL (16-327); URINE PROTEIN 15.8 mg/dL (<12)
[2017-08-12 21:59] LABS: ALANINE AMINOTRANSFERASE 23 U/L (9-52); ALBUMIN 3.4 g/dL (3.5-5.0); ALKALINE PHOSPHATASE 178 U/L (38-126); ANION GAP 10 (5-19); ASPARTATE AMINO TRANSFERASE 20 U/L (14-36); BILIRUBIN,DIRECT 0.1 mg/dL (0.0-0.4); BILIRUBIN,TOTAL 0.1 mg/dL (0.2-1.3); BLOOD UREA NITROGEN 7 mg/dL (7-20); CALCIUM 9.6 mg/dL (8.4-10.2); CARBON DIOXIDE 22 mmol/L (22-30); CHLORIDE 107 mmol/L (98-107); GLUCOSE 93 mg/dL (75-110); LDH 377 U/L (313-618); POTASSIUM 4.2 mmol/L (3.6-5.0); SODIUM 139.1 mmol/L (137-145); TOTAL PROTEIN 6.6 g/dL (6.3-8.2); URIC ACID 5.2 mg/dL (2.5-6.2)
[2017-08-12] MEDS: RINGERS SOLUTION,LACTATED 1,000 ML IV PRN ×2 (22:07→23:41)
[2017-08-12] MEDS ORDERED: MISOPROSTOL 0.2 MG TABLET ONE (22:09)
[2017-08-12] MEDS ORDERED: LIDOCAINE 1% INJ-PF (10 MG/ML) 30 ML SDV ONE (22:10)
[2017-08-12] MEDS ORDERED: EPHEDRINE SULFATE INJ 50 MG/1 ML AMPULE ONE (22:10)
[2017-08-12] MEDS ORDERED: FENTANYL CITRATE INJ/PF 100 MCG/2 ML AMPUL ONE (22:10)
[2017-08-12] MEDS ORDERED: PHENYLEPHRINE HCL INJ/PF 10 MG/1 ML SDV ONE (22:10)
[2017-08-12] MEDS ORDERED: FENTANYL/BUPIVACAINE/NS/PF 300 MCG/150 ML RTUINJ EPI ONE (22:10)
[2017-08-12] MEDS ORDERED: BUPIVACAINE HCL 0.25 % INJ/PF (2.5 MG/1 ML) 30 ML VIAL ONE (22:11)
[2017-08-12] MEDS ORDERED: OXYTOCIN/NORMAL SALINE 20 UNIT/1,000 ML RTUINJ ONE (22:11)
[2017-08-12] MEDS ORDERED: OXYTOCIN/NORMAL SALINE 20 UNIT/1,000 ML RTUINJ IV PRN (22:46)
[2017-08-12 23:00] LABS: CHLAM PCR NOT DETECTED (NOT DETECT); GON PCR NOT DETECTED (NOT DETECT)
[2017-08-12] MEDS ORDERED: LIDOCAINE 1.5%/EPINEPHRINE INJ-PF 30 ML SDV ONE (23:13)
[2017-08-13] MEDS ORDERED: PENICILLIN G-K 5 MILLION UNIT VIAL ONE (01:34)
[2017-08-13] MEDS: PENICILLIN G POTASSIUM 2,500,000 UNIT in DEXTROSE 5%-WATER 50 ML IV SCH ×2 (01:38→02:41)
[2017-08-13] MEDS ORDERED: ACETAMINOPHEN WITH CODEINE #3 TABLET PO PRN ×2 (03:11)
[2017-08-13] MEDS ORDERED: OXYTOCIN/NORMAL SALINE 20 UNIT/1,000 ML RTUINJ IV PRN (03:11)
[2017-08-13] MEDS ORDERED: BENZOCAINE/MENTHOL AEROSOL SPRAY 56 ML TOP PRN (03:11)
[2017-08-13] MEDS ORDERED: ZOLPIDEM TARTRATE 5 MG TABLET PO PRN (03:11)
[2017-08-13] MEDS ORDERED: MEASLES,MUMPS&RUBELLA VACC/PF 0.5 ML VIAL SUBCUT PRN (03:11)
[2017-08-13] MEDS ORDERED: DIPH/PERTUSS(ACELL)/TETANUS VAC/PF 0.5 ML SYR (>=10YO) IM PRN (03:11)
[2017-08-13] MEDS ORDERED: DIBUCAINE 1% OINTMENT 28 GM TP PRN (03:11)
--- NOTE | 2017-08-13 03:43 | Warning Signs in Babies ---
VOD Warning Signs Datetime Report Generated by [facility]: 08/13/2017 03:43 VOD#608 -Warning Signs in Babies: Needs to be viewed. (08/13/2017 03:15:Treva Aldrich RN)
[2017-08-13] MEDS: IBUPROFEN 800 MG TABLET PO SCH ×3 (07:42→22:58)
[2017-08-13] MEDS: FERROUS SULFATE 325 MG TABLET PO SCH ×2 (10:01→17:27)
[2017-08-13] MEDS: PRENATAL VITAMIN W DHA CAPSULE PO SCH (10:01)
[2017-08-13] MEDS: SENNOSIDES/DOCUSATE 8.6-50 MG 1 EACH TABLET PO SCH (10:01)
[2017-08-13] MEDS: DOCUSATE SODIUM 100 MG CAPSULE PO SCH ×2 (10:02→17:27)
[2017-08-14 07:11] LABS: HEMATOCRIT 30.8 % (36.0-47.0); HEMOGLOBIN 9.8 g/dL (12.0-15.5); MEAN CORPUSCULAR HEMOGLOBIN 21.9 pg (27.0-33.4); MEAN CORPUSCULAR HGB CONC 31.9 g/dL (32.0-36.0); MEAN CORPUSCULAR VOLUME 69 fl (80-97); PLATELET COUNT 207 10^3/uL (150-450); RED BLOOD COUNT 4.48 10^6/uL (3.72-5.28); RED CELL DISTRIBUTION WIDTH 18.1 % (11.5-14.0); WHITE BLOOD COUNT 8.2 10^3/uL (4.0-10.5)
[2017-08-14] MEDS: IBUPROFEN 800 MG TABLET PO SCH ×3 (07:16→21:19)
--- NOTE | 2017-08-14 09:24 | PDOC PROGRESS REPORT ---
Subjective-OB Progress Note for:: 08/14/17 Subjective: s/p day #1 Doing, well voiding without difficulty, lochia is stable, pain well controlled, tolerating diet. Physical Exam (OB) Vital Signs: Temp Pulse Resp BP Pulse Ox 98.1 F 82 16 127/67 H 99 08/14/17 08:40 08/14/17 08:40 08/14/17 08:40 08/14/17 08:40 08/14/17 08:40 Intake & Output 08/13/17 08/14/17 08/15/17 06:59 06:59 06:59 Weight 77.8 kg - Lochia Lochia Amount: Small 10-25 ml Lochia Color: Rubra/Red - Abdomen Description: Tender, Soft Hernia Present: No Fundal Description: Firm, Midline Fundal Height: u/u - u/2 Objective-Diagnostic Laboratory: 08/14/17 06:43 08/12/17 21:27 08/14/17 06:43 WBC 8.2 RBC 4.48 Hgb 9.8 L Hct 30.8 L MCV 69 L MCH 21.9 L MCHC 31.9 L RDW 18.1 H Plt Count 207 Assessment and Plan(PN) - Assessment and Plan (1) Non-Kittitian speaking patient Is this a current diagnosis for this admission?: Yes Plan: translated via [employer] (2) Obstetrical laceration, first degree Is this a current diagnosis for this admission?: Yes Plan: routine care (3) Vaginal delivery Is this a current diagnosis for this admission?: Yes Plan: routine pp care - Time Spent with Patient Time with patient: Less than 15 minutes Critical Time spent with patient: Less than 15 minutes Medications reviewed and adjusted accordingly: Yes - Disposition Anticipated Discharge: Home Within: within 24 hours
[2017-08-14] MEDS: SENNOSIDES/DOCUSATE 8.6-50 MG 1 EACH TABLET PO SCH (09:44)
[2017-08-14] MEDS: DOCUSATE SODIUM 100 MG CAPSULE PO SCH ×2 (09:44→17:10)
[2017-08-14] MEDS: PRENATAL VITAMIN W DHA CAPSULE PO SCH (09:44)
[2017-08-14] MEDS: FERROUS SULFATE 325 MG TABLET PO SCH ×2 (09:45→17:11)
[2017-08-15] MEDS: IBUPROFEN 800 MG TABLET PO SCH (07:28)
--- NOTE | 2017-08-15 10:03 | PDOC PROGRESS REPORT ---
Subjective-OB Progress Note for:: 08/15/17 Subjective: OOB in room with hsb, doing ok, baby in room, needs home instructions in [place] , breast feeding, voiding, no c/o Physical Exam (OB) Vital Signs: Temp Pulse Resp BP Pulse Ox 97.5 F 83 15 133/87 H 99 08/15/17 08:39 08/15/17 08:39 08/15/17 08:39 08/15/17 08:39 08/15/17 08:39 - PIH/Pre-Eclampsia DTR's: 2 + Clonus: Negative Headache: Absent Epigastric Pain: No Visual Changes: No - Lochia Lochia Amount: Scant < 10 ml Lochia Color: Rubra/Red - Abdomen Description: Soft, Round Hernia Present: No Fundal Description: Firm, Midline Fundal Height: u/u - u/2 Objective-Diagnostic Laboratory: 08/14/17 06:43 08/12/17 21:27 Assessment and Plan(PN) - Assessment and Plan (1) Obstetrical laceration, first degree Is this a current diagnosis for this admission?: Yes (2) Spontaneous rupture of amniotic membranes Is this a current diagnosis for this admission?: Yes (3) Limited care Qualifiers: Trimester: third trimester Qualified Code(s): O09.33 - Supervision of with insufficient care, third trimester Is this a current diagnosis for this admission?: Yes (4) Macrosomia Is this a current diagnosis for this admission?: Yes (5) Non-Spanish speaking patient Is this a current diagnosis for this admission?: Yes - Time Spent with Patient Time with patient: Less than 15 minutes Medications reviewed and adjusted accordingly: Yes - Disposition Anticipated Discharge: Home Within: Other - home today
--- NOTE | 2017-08-15 10:07 | PDOC DISCHARGE SUMMARY ---
Final Diagnosis Discharge Date: 08/15/17 - Final Diagnosis (1) Obstetrical laceration, first degree Is this a current diagnosis for this admission?: Yes (2) Spontaneous rupture of amniotic membranes Is this a current diagnosis for this admission?: Yes (3) Limited care Is this a current diagnosis for this admission?: Yes (4) Macrosomia Is this a current diagnosis for this admission?: Yes (5) Non-Cook Islander speaking patient Is this a current diagnosis for this admission?: Yes Discharge Data - Discharge Medication Home Medications: Vit,Calc76/Iron/Folic [Pnv 29-1 Tablet] 1 tab PO DAILY 08/13/17 Gestational Age: 40.4 Reason(s) for Admission: Onset of Labor, PROM, Group B Strep Positive Procedures: Ultrasound Intrapartum Procedure(s): Spontaneous Vaginal Delivery Complication(s): Laceration-Perineal Laceration-Degree: 1st - [place] Data Baby 1 Female at 1 minute: 6 at 5 minutes: 8 Weight: 4.224 kg Home with Mother: Yes Complications: No - Diagnosis Test Laboratory: Temp Pulse Resp BP Pulse Ox 97.5 F 83 15 133/87 H 99 08/15/17 08:39 08/15/17 08:39 08/15/17 08:39 08/15/17 08:39 08/15/17 08:39 08/12/17 08/12/17 08/14/17 20:45 21:27 06:43 RBC 4.54 4.48 Hgb 10.2 L 9.8 L Hct 31.1 L 30.8 L Urine Opiates Screen NEGATIVE - Discharge information/Instructions Discharge Activity: Activity As Tolerated, Balance Activity w/Rest, No Lifting Over 10 Pounds, No tub bath Discharge Diet: As Tolerated, Regular Disposition: HOME, SELF-CARE Follow up with: [facility] in: 2, Weeks
[2017-08-15] MEDS: DOCUSATE SODIUM 100 MG CAPSULE PO SCH (10:08)
[2017-08-15] MEDS: PRENATAL VITAMIN W DHA CAPSULE PO SCH (10:08)
[2017-08-15] MEDS: FERROUS SULFATE 325 MG TABLET PO SCH (10:08)
[2017-08-15] MEDS: SENNOSIDES/DOCUSATE 8.6-50 MG 1 EACH TABLET PO SCH (10:08)
[2017-08-15 12:04] VITALS: BP 137/94
--- NOTE | 2017-08-17 09:46 | Delivery Summary ---
Del Sum A-C Datetime Report Generated by CPN: 08/17/2017 09:46 DELIVERY PERSONNEL DELIVERY PERSONNEL: [id number] Delivery Doctor:: Blanca Tse MD Labor and Delivery Nurse:: Treva Aldrich RNupholstery restorer Nurse:: Amelie Hastings RN Corporate Development Manager/LANDSCAPE ACCOUNT MANAGER: Katie Oneal MATERNAL INFORMATION Delivery Anesthesia: Epidural Medications After Delivery: Pitocin Bolus-Please Comment; Other-Please Comment Meds After Delivery Comment: Pitocin 20 units/1000 mL NS bolus cytotec 1000 mcg Maternal Complications: None Provider Comments: VFI delivered in AGUSTIN presentation with loose nuchal cord easily reduced at perineum. Shoulders and body delivered without difficulty. Cord doubly clamped and cut and infant to maternal abdomen. NICU notified. Placenta delivered intact spontaneously. Uterine exploration revelaed no e/o retained placenta. Intermittent atony resolved with pitocin IV and cytotec 1000mcg VT. Good hemostasis after repair of perineal laceration. FF at U. LABOR SUMMARY EDC: 08/09/2017 00:00 No. Babies in Womb: 1 Attempted: No Labor Anesthesia: Epidural LABOR INFORMATION Reason for Induction: Not Applicable Onset of Labor: 08/12/2017 20:57 Complete Dilatation: 08/13/2017 02:56 Oxytocin: N/A Group B Beta Strep: positive Antibiotics # of Doses: 2 Antibiotics Time of Last Dose: 137 Name of Antibiotic Given: PCN Steroids Given: None Reason Steroids Not Administered: Not Applicable MEMBRANES Membranes Rupture Method: Spontaneous Rupture of Membranes: 08/12/2017 11:00 Length of Rupture (hr): 16.15 Amniotic Fluid Color: Clear Amniotic Fluid Amount: Small Amniotic Fluid Odor: Normal STAGES OF LABOR Stage 1 hr: 5 Stage 1 min: 59 Stage 2 hr: 0 Stage 2 min: 13 Stage 3 hr: 0 Stage 3 min: 2 Total Time in Labor hr: 6 Total Time in Labor min: 14 VAGINAL DELIVERY Episiotomy: None Laceration #1: Perineal Laceration Extension #1: First Degree Laceration Repair: Yes Laceration Repair Note: 1st degree laceration repaired for hemostasis Sponge Count Correct: Yes Sharps Count Correct: Yes CSECTION DELIVERY Primary Indication: N/A Secondary Indication: N/A CSection Incidence: N/A Labor: N/A Elective: N/A CSection Incision: N/A BABY A INFORMATION Infant Delivery Date/Time: 08/13/2017 03:09 Method of Delivery: Vaginal Method of Delivery: Vaginal Born in Route : No : N/A Forceps: N/A Vacuum Extraction: N/A Shoulder Dystocia : No PRESENTATION/POSITION BABY A Presentation: Cephalic Presentation: Cephalic Presentation: Cephalic Presentation: Cephalic Cephalic Presentation: Vertex Vertex Position: Right Occipital Anterior Breech Presentation: N/A PLACENTA INFORMATION BABY A Placenta Delivery Time : 08/13/2017 03:11 Placenta Method of Delivery: Spontaneous Placenta Method of Delivery: Spontaneous Placenta Status: Delivered SCORES BABY A Heart Rate 1 min: >100 bpm Resp Effort 1 min: Slow, Irregular Reflex Irritability 1 min: Cough or Sneeze or Pulls Away Muscle Tone 1 min: Some Flexion of Extremities Color 1 min: Blue/Pale Resuscitation Effort 1 min: Tactile Stimulation SCORE 1 MIN: 6 Heart Rate 5 min: >100 bpm Resp Effort 5 min: Good Cry Reflex Irritability 5 min: Cough or Sneeze or Pulls Away Muscle Tone 5 min: Some Flexion of Extremities Color 5 min: Body Ona, Extremities Blue Resuscitation Effort 5 min: Tactile Stimulation SCORE 5 MIN: 8 INFORMATION BABY A Gestational Age at Delivery: 40.4 Gestational Status: Full Term- 39- 40.6 Weeks Infant Outcome : Liveborn Condition : Stable Infant Sex: Female Sex: Female IDENTIFICATION BABY A Infant Verification Date/Time: 08/13/2017 03:27 ID Band Number: [id number] Mother's Name Verified: Yes Infant RN Verifying : Esme Rivera RN Additional Verifying Personnel: Diane Herring RN WEIGHT/LENGTH BABY A Birthweight (gm): 4220 Weight (lb): 9 Infant Weight (oz): 5 Length (in): 19.50 Infant Length (cm): 49.53 CORD INFORMATION BABY A No. Cord Vessels: 3 Nuchal Cord : Around Neck x1, Loose Cord Blood Taken: Yes-For Storage (Mom's Blood type +) Infant Suction: Mouth; Nose ASSESSMENT BABY A Infant Complications: None Physical Findings- Other: initial assessment to be performed by nursery nurses who Respirations: Grunting Infant Care By: L. Rivera, RN Transferred To: NICU BABY B INFORMATION : N/A SIGNATURES Signature: with User ID: [email or web address]
== END 2017-08-15 13:49 | disposition home or self-care (01) | DRG 775 ==
LOC: LC 20:21 → LR 21:06 → 2S 08-13 05:54
PROVIDERS: ADMIT Student in an Organized Health Care Education/Training Program; ATTEND Student in an Organized Health Care Education/Training Program
PROC: 4A1HXCZ Monitoring of Products of Conception, Cardiac Rate, External Approach (ICD-10-PCS; 2017-08-12)
PROC: 10E0XZZ Delivery of Products of Conception, External Approach (ICD-10-PCS; principal; 2017-08-13)
PROC: 0HQ9XZZ Repair Perineum Skin, External Approach (ICD-10-PCS; 2017-08-13)
DX: O99.824 Streptococcus B carrier state complicating childbirth (principal); O13.4 Gestational [pregnancy-induced] hypertension without significant proteinuria, complicating childbirth; O70.0 First degree perineal laceration during delivery; O36.63X0 Maternal care for excessive fetal growth, third trimester, not applicable or unspecified; O69.81X0 Labor and delivery complicated by cord around neck, without compression, not applicable or unspecified; O62.2 Other uterine inertia; Z3A.40 40 weeks gestation of pregnancy; Z37.0 Single live birth; Z90.49 Acquired absence of other specified parts of digestive tract
CPT/HCPCS: 36415; 80053; 80307; 81005; 82570; 83615; 84112; 84156; 84550; 85025; 85027; 86592; 86850; 86900; 86901; 87491; 87591; 88307; J2370; J2540; J2590; J3010; J3490; Q0114

== ENCOUNTER → 2018-10-31 | Outpatient (CLI) | payer SELFPAY ==
--- NOTE | 2018-10-31 16:30 | RADIOLOGY REPORT (SQ) ---
EXAM DESCRIPTION: U/S OB 14+ TRNABD 1GES W/O DOP COMPLETED DATE/TIME: 10/31/2018 3:47 pm REASON FOR STUDY: Z34.83 ENCOUNTER FOR SUPRVSN OF NORMAL , THIRD TRIMESTER Z34.83 ENCOUNTE R FOR SUPRVSN OF NORMAL , THIRD TRIM COMPARISON: 08/22/2018 TECHNIQUE: Static and Dynamic grayscale imaging performed of gravid uterus using transabdominal appr oach. Additional selected color Doppler and spectral images recorded. All stored on PACS. LIMITATIONS: None. FINDINGS: FETUSES SEEN:1 EGA: 31 weeks 6 days. Calculated using BPD,FL,HC,AC documented on images. 1 week discrepancy with cl inical dates. TJ: 12/27/2018 EFW: 1,788 grams PERCENTILE: 60th AMY: 8.9 PLACENTA: Anterior location. GRADE: II PRESENTATION: Cephalic. ANATOMY: HEART RATE: 133 beats per minute. MATERNAL ADNEXA: Unremarkable. CERVICAL LENGTH: Not visualized. OTHER: No other significant finding. IMPRESSION: LIVING INTRAUTERINE . ESTIMATED GESTATIONAL AGE 31 WEEKS 6 DAYS. THIS IS APPROXIMATELY 1 WEEK FURTHER LONG THAN CLINICAL D ATES. NO VISUALIZED ANOMALIES. Trimester of : Third trimester - 28 weeks to delivery. TECHNICAL DOCUMENTATION: JOB ID: [id number] [employer]- All Rights Reserved Reading location - IP/workstation name: [email or web address]
== END ==
LOC: RAD 14:50
PROVIDERS: ATTEND Midwife
DX: Z34.83 Encounter for supervision of other normal pregnancy, third trimester (principal)
CPT/HCPCS: 76805

== ENCOUNTER 2018-12-05 17:38 | Outpatient (CLI) | payer SELFPAY ==
[2018-12-05 18:16] LABS: ABSOLUTE EOSINOPHILS # (AUTO) 0.1 10^3/uL (0.0-0.6); ABSOLUTE LYMPHOCYTES (AUTO) 1.4 10^3/uL (0.5-4.7); ABSOLUTE MONOCYTES (AUTO) 0.5 10^3/uL (0.1-1.4); ABSOLUTE NEUT (AUTO) 7.9 10^3/uL (1.7-8.2); BASOPHILS % (AUTO) 0.3 % (0-2); EOSINOPHILS % (AUTO) 0.6 % (0-6); HEMATOCRIT 32.1 % (36.0-47.0); HEMOGLOBIN 10.3 g/dL (12.0-15.5); LYMPHOCYTES % (AUTO) 14.2 % (13-45); MEAN CORPUSCULAR HEMOGLOBIN 22.2 pg (27.0-33.4); MEAN CORPUSCULAR HGB CONC 32.2 g/dL (32.0-36.0); MEAN CORPUSCULAR VOLUME 69 fl (80-97); MONOCYTES % (AUTO) 5.1 % (3-13); PLATELET COUNT 228 10^3/uL (150-450); RED BLOOD COUNT 4.67 10^6/uL (3.72-5.28); RED CELL DISTRIBUTION WIDTH 18.3 % (11.5-14.0); SEGMENTED NEUTROPHILS % (AUTO) 79.8 % (42-78); TOTAL CELLS COUNTED % (AUTO) 100 %; WHITE BLOOD COUNT 9.9 10^3/uL (4.0-10.5)
[2018-12-05 18:40] LABS: APPEARANCE,URINE SLIGHTLY-CLOUDY; BILIRUBIN,URINE NEGATIVE (NEGATIVE); COLOR,URINE YELLOW; GLUCOSE, URINE NEGATIVE (NEGATIVE); KETONES,URINE 20 mg/dL (NEGATIVE); LEUKOCYTE ESTERASE,URINE NEGATIVE (NEGATIVE); NITRITE,URINE NEGATIVE (NEGATIVE); PROTEIN,URINE NEGATIVE (NEGATIVE); URINE SPECIFIC GRAVITY 1.012; UROBILINOGEN,URINE NEGATIVE mg/dL (<2.0)
[2018-12-05 18:44] LABS: ALBUMIN 3.4 g/dL (3.5-5.0); ALKALINE PHOSPHATASE 211 U/L (38-126); ANION GAP 11 (5-19); ASPARTATE AMINO TRANSFERASE 27 U/L (14-36); BILIRUBIN,DIRECT 0.1 mg/dL (0.0-0.4); BILIRUBIN,TOTAL 0.3 mg/dL (0.2-1.3); BLOOD UREA NITROGEN 6 mg/dL (7-20); CALCIUM 8.9 mg/dL (8.4-10.2); CARBON DIOXIDE 18 mmol/L (22-30); CHLORIDE 106 mmol/L (98-107); GLUCOSE 156 mg/dL (75-110); TOTAL PROTEIN 6.6 g/dL (6.3-8.2)
[2018-12-05 18:49] LABS: UR PRO/CREAT RATIO RESULT 0.2 mg/mg (0.0-0.2); URINE CREATININE 67.1 mg/dL (16-327); URINE PROTEIN 12.9 mg/dL (<12)
--- NOTE | 2018-12-05 18:57 | Non Stress Test Report ---
Non Stress Test Datetime Report Generated by CPN: 12/05/2018 18:57 DEMOGRAPHIC EGA NST: 35.4 INDICATION Indication for Study: Ordered by Provider MONITORING Monitor Explained: Monitor Explained; Test Explained; Patient Verbalized Understanding Time on Monitor: 12/05/2018 17:53 Time off Monitor: 12/05/2018 18:52 NST Duration: 59 NST INTERVENTIONS NST Interventions: Reposition Patient Physician Notified NST: Dr. Cali BABY A: [id number] BABY A Movement : Present Contraction Frequency : none FHR Baseline : 150 Accelerations : 15X15 Decelerations : None Variability : Moderate 6-25bpm NST Review: Meets Criteria for Reactive NST NST Review and Verified By : ANDREA VALDEZ RN NST Results: Reactive NST REPORT Report Trigger: Send Report
[2018-12-05 18:58] LABS: URINE AMPHETAMINES SCREEN NEGATIVE; URINE BARBITURATES SCREEN NEGATIVE; URINE BENZODIAZEPINES SCREEN NEGATIVE; URINE COCAINE SCREEN NEGATIVE; URINE MARIJUANA (THC) SCREEN NEGATIVE; URINE METHADONE SCREEN NEGATIVE; URINE PHENCYCLIDINE SCREEN NEGATIVE
== END 2018-12-05 19:19 | disposition home or self-care (01) ==
LOC: LC 17:38
PROVIDERS: ATTEND Obstetrics & Gynecology
PROC: 4A1HXCZ Monitoring of Products of Conception, Cardiac Rate, External Approach (ICD-10-PCS; principal; 2018-12-05)
DX: O13.3 Gestational [pregnancy-induced] hypertension without significant proteinuria, third trimester (principal); Z3A.35 35 weeks gestation of pregnancy
CPT/HCPCS: 36415; 59025; 80053; 80307; 81001; 82570; 83615; 84156; 84550; 85025

== ENCOUNTER 2018-12-14 07:43 | Outpatient (CLI) | payer SELFPAY ==
--- NOTE | 2018-12-14 09:01 | Non Stress Test Report ---
Non Stress Test Datetime Report Generated by CPN: 12/14/2018 09:00 DEMOGRAPHIC EGA NST: 36.6 INDICATION Indication for Study: Ordered by Provider VITAL SIGNS Temperature - NST: 98.2 Pulse - NST: 105 RESP - NST: 15 NBPSYS NST: 141 NBPDIA NST: 69 MONITORING Monitor Explained: Monitor Explained; Test Explained; Patient Verbalized Understanding Time on Monitor: 12/14/2018 07:51 Time off Monitor: 12/14/2018 08:41 NST Duration: 50 NST INTERVENTIONS NST Interventions: PO Hydration Physician Notified NST: P Powers CNM BABY A: [id number] BABY A Movement : Present Contraction Frequency : none Accelerations : 15X15 Decelerations : None Variability : Moderate 6-25bpm NST Review: Meets Criteria for Reactive NST NST Review and Verified By : C. Worcester RN NST Results: Reactive NST COMMENTS NST Comments: CNM on unit reviewing FHT strip NST REPORT Report Trigger: Send Report
--- NOTE | 2018-12-14 10:31 | RADIOLOGY REPORT (SQ) ---
EXAM DESCRIPTION: U/S OB LIMITED COMPLETED DATE/TIME: 12/14/2018 9:40 am REASON FOR STUDY: AMY chronic HTN COMPARISON: OB ultrasound 10/31/2018 TECHNIQUE: Limited transabdominal grayscale ultrasound for evaluation of specific requested obstetri trev parameters. LIMITATIONS: None. FINDINGS: CERVICAL LENGTH: 4.1 cm Closed. AMY: Total AMY 9.3 cm, largest pocket 5 cm FHR: 157 Beats per minute. PRESENTATION: Cephalic. PLACENTA: Anterior fundal grade 1 ANATOMY: Not assessed OTHER: No other significant findings. IMPRESSION: Total AMY 9.3 cm, largest pocket 5 cm Trimester of : Third trimester - 28 weeks to delivery. TECHNICAL DOCUMENTATION: JOB ID: [id number] [employer]- All Rights Reserved Reading location - IP/workstation name: [email or web address]
== END 2018-12-14 09:32 | disposition home or self-care (01) ==
LOC: LC 07:43
PROVIDERS: ATTEND Obstetrics & Gynecology Gynecology
PROC: 4A1HXCZ Monitoring of Products of Conception, Cardiac Rate, External Approach (ICD-10-PCS; principal; 2018-12-14)
DX: O10.913 Unspecified pre-existing hypertension complicating pregnancy, third trimester (principal); Z3A.36 36 weeks gestation of pregnancy
CPT/HCPCS: 59025; 76815

== ENCOUNTER 2018-12-18 07:39 | Outpatient (CLI) | payer SELFPAY ==
--- NOTE | 2018-12-18 09:01 | Non Stress Test Report ---
Non Stress Test Datetime Report Generated by CPN: 12/18/2018 09:01 DEMOGRAPHIC Test Number: 3 EGA NST: 37.3 INDICATION Indication for Study: Gestational Hypertension VITAL SIGNS Temperature - NST: 98.8 Pulse - NST: 102 RESP - NST: 16 NBPSYS NST: 111 NBPDIA NST: 59 MONITORING Monitor Explained: Monitor Explained; Test Explained; Patient Verbalized Understanding; Other Time on Monitor: 12/18/2018 07:50 Time off Monitor: 12/18/2018 08:44 NST Duration: 54 NST INTERVENTIONS NST Interventions: PO Hydration Physician Notified NST: Dr Tse BABY A: [id number] BABY A Movement : Present Contraction Frequency : occasional FHR Baseline : 145 Accelerations : 15X15 Decelerations : None Variability : Moderate 6-25bpm NST Review: Meets Criteria for Reactive NST NST Review and Verified By : BL ROULUND, RN NST Results: Reactive NST COMMENTS NST Comments: pt has scheduled NST and AMY weekly NST REPORT Report Trigger: Send Report
== END 2018-12-18 08:50 | disposition home or self-care (01) ==
LOC: LC 07:39
PROVIDERS: ATTEND Student in an Organized Health Care Education/Training Program
PROC: 4A1HXCZ Monitoring of Products of Conception, Cardiac Rate, External Approach (ICD-10-PCS; principal; 2018-12-18)
DX: O16.3 Unspecified maternal hypertension, third trimester (principal); Z3A.37 37 weeks gestation of pregnancy
CPT/HCPCS: 59025

== ENCOUNTER 2018-12-21 07:44 | Outpatient (CLI) | payer SELFPAY ==
--- NOTE | 2018-12-21 08:32 | RADIOLOGY REPORT (SQ) ---
EXAM DESCRIPTION: U/S OB LIMITED COMPLETED DATE/TIME: 12/21/2018 8:22 am REASON FOR STUDY: AMY COMPARISON: 12/14/2018. TECHNIQUE: Limited transabdominal grayscale ultrasound for evaluation of specific requested obstetri trev parameters. LIMITATIONS: None. FINDINGS: AMY: 8.0 cm. Largest pocket measures 2.7 x 4.8 cm. FHR: 135 beats per minute. PRESENTATION: Cephalic. PLACENTA: Not assessed ANATOMY: Not assessed OTHER: No other significant findings. IMPRESSION: LIMITED OBSTETRICAL ULTRASOUND WITH MEASURED PARAMETERS DELINEATED ABOVE. Trimester of : Third trimester - 28 weeks to delivery. TECHNICAL DOCUMENTATION: JOB ID: [id number] [employer]- All Rights Reserved Reading location - IP/workstation name: [email or web address]
== END 2018-12-21 09:07 | disposition home or self-care (01) ==
LOC: LC 07:44
PROVIDERS: ATTEND Obstetrics & Gynecology Gynecology
PROC: 4A1HXCZ Monitoring of Products of Conception, Cardiac Rate, External Approach (ICD-10-PCS; principal; 2018-12-21)
DX: Z34.93 Encounter for supervision of normal pregnancy, unspecified, third trimester (principal)
CPT/HCPCS: 59025; 76815

== ENCOUNTER 2018-12-25 07:46 | Outpatient (CLI) | payer SELFPAY | END 2018-12-25 08:35 | disposition home or self-care (01) | LOC: LC 07:46 | PROVIDERS: ATTEND Student in an Organized Health Care Education/Training Program | PROC: 4A1HXCZ Monitoring of Products of Conception, Cardiac Rate, External Approach (ICD-10-PCS; principal; 2018-12-25) | DX: Z34.93 Encounter for supervision of normal pregnancy, unspecified, third trimester (principal) | CPT/HCPCS: 59025 ==

== ENCOUNTER 2018-12-28 07:49 | Inpatient (IN) | payer SELFPAY ==
--- NOTE | 2018-12-28 07:50 | Non Stress Test Report ---
Non Stress Test Datetime Report Generated by CPN: 12/28/2018 07:50 DEMOGRAPHIC Test Number: 5 EGA NST: 38.3 EGA NST: 37.6 INDICATION Indication for Study: Gestational Hypertension; Ordered by Provider Indication for Study: Ordered by Provider VITAL SIGNS Temperature - NST: 98.5 Pulse - NST: 115 RESP - NST: 16 NBPSYS NST: 124 NBPDIA NST: 70 MONITORING Monitor Explained: Monitor Explained; Test Explained; Patient Verbalized Understanding Monitor Explained: Monitor Explained; Test Explained; Patient Verbalized Understanding Time on Monitor: 12/25/2018 08:00 Time on Monitor: 12/21/2018 07:52 Time off Monitor: 12/25/2018 08:35 Time off Monitor: 12/21/2018 09:00 NST Duration: 35 NST Duration: 68 NST INTERVENTIONS NST Interventions: PO Hydration NST Interventions: PO Hydration; Reposition Patient Physician Notified NST: Joan Vu Physician Notified NST: Dr. Rivera BABY A: [id number] BABY A Movement : Present Movement : Present Contraction Frequency : 8-10 Contraction Frequency : Occasional FHR Baseline : 150 FHR Baseline : 140 Accelerations : 15X15 Accelerations : 15X15 Decelerations : None Decelerations : None Variability : Moderate 6-25bpm Variability : Moderate 6-25bpm NST Review: Meets Criteria for Reactive NST NST Review: Meets Criteria for Reactive NST NST Review and Verified By : Juliane Leiva RN NST Review and Verified By : Debby POLK NST Results: Reactive NST Results: Reactive NST REPORT Report Trigger: Send Report
--- NOTE | 2018-12-28 08:28 | Non Stress Test Report ---
Non Stress Test Datetime Report Generated by CPN: 12/28/2018 08:28 DEMOGRAPHIC EGA NST: 38.6 INDICATION Indication for Study: Ordered by Provider MONITORING Monitor Explained: Monitor Explained; Test Explained; Patient Verbalized Understanding Time on Monitor: 12/28/2018 08:01 Time off Monitor: 12/28/2018 08:27 NST Duration: 26 NST INTERVENTIONS NST Interventions: None Physician Notified NST: Dr. Tse BABY A Movement : Present Contraction Frequency : none FHR Baseline : 145 Accelerations : 15X15 Decelerations : None Variability : Moderate 6-25bpm NST Review: Meets Criteria for Reactive NST NST Review and Verified By : Sunita Denis RN NST Results: Reactive NST REPORT Report Trigger: Send Report
--- NOTE | 2018-12-28 09:55 | RADIOLOGY REPORT (SQ) ---
EXAM DESCRIPTION: U/S OB LIMITED COMPLETED DATE/TIME: 12/28/2018 9:13 am REASON FOR STUDY: AMY COMPARISON: 12/21/2018 TECHNIQUE: Limited transabdominal grayscale ultrasound for evaluation of specific requested obstetri trev parameters. LIMITATIONS: None. FINDINGS: CERVICAL LENGTH: Not assessed. AMY: 4.8 cm. (3.9 cm x 2.3 cm (LVP) FHR: 140 beats per minute. PRESENTATION: Cephalic. PLACENTA: Anterior. ANATOMY: Not assessed OTHER: No other significant findings. IMPRESSION: LIMITED OBSTETRICAL ULTRASOUND WITH MEASURED PARAMETERS DELINEATED ABOVE. Trimester of : Third trimester - 28 weeks to delivery. TECHNICAL DOCUMENTATION: JOB ID: [id number] [employer]- All Rights Reserved Reading location - IP/workstation name: [email or web address]
[2018-12-28] MEDS ORDERED: PENICILLIN G POTASSIUM 5,000,000 UNIT in DEXTROSE 5%-WATER 100 ML IV ONE (11:21)
[2018-12-28] MEDS ORDERED: RINGERS SOLUTION,LACTATED 1,000 ML IV ONE (11:21)
[2018-12-28] MEDS ORDERED: RINGERS SOLUTION,LACTATED 1,000 ML IV PRN (11:21)
[2018-12-28] MEDS ORDERED: OXYTOCIN/NORMAL SALINE 20 UNIT/1,000 ML RTUINJ IV PRN ×2 (11:22→20:12)
[2018-12-28] MEDS ORDERED: PENICILLIN G-K 5 MILLION UNIT VIAL ONE ×3 (11:22→19:21)
[2018-12-28] MEDS ORDERED: PENICILLIN G-K 5 MILLION UNIT VIAL IV ONE (12:00)
[2018-12-28 12:19] LABS: ABSOLUTE LYMPHOCYTES (AUTO) 1.1 10^3/uL (0.5-4.7); ABSOLUTE MONOCYTES (AUTO) 0.4 10^3/uL (0.1-1.4); ABSOLUTE NEUT (AUTO) 4.8 10^3/uL (1.7-8.2); BASOPHILS % (AUTO) 0.5 % (0-2); EOSINOPHILS % (AUTO) 0.6 % (0-6); HEMOGLOBIN 10.3 g/dL (12.0-15.5); MEAN CORPUSCULAR HEMOGLOBIN 21.1 pg (27.0-33.4); MEAN CORPUSCULAR HGB CONC 31.3 g/dL (32.0-36.0); MEAN CORPUSCULAR VOLUME 67 fl (80-97); MONOCYTES % (AUTO) 6.1 % (3-13); PLATELET COUNT 204 10^3/uL (150-450); RED BLOOD COUNT 4.89 10^6/uL (3.72-5.28); RED CELL DISTRIBUTION WIDTH 18.7 % (11.5-14.0); SEGMENTED NEUTROPHILS % (AUTO) 75.8 % (42-78); TOTAL CELLS COUNTED % (AUTO) 100 %; WHITE BLOOD COUNT 6.3 10^3/uL (4.0-10.5)
[2018-12-28] MEDS ORDERED: LIDOCAINE 1% INJ-PF (10 MG/ML) 30 ML SDV ONE (14:30)
[2018-12-28] MEDS ORDERED: OXYTOCIN/NORMAL SALINE 20 UNIT/1,000 ML RTUINJ ONE (14:30)
[2018-12-28] MEDS ORDERED: OXYTOCIN 10 UNIT/ML VIAL ONE (14:30)
[2018-12-28] MEDS ORDERED: MISOPROSTOL 0.2 MG TABLET ONE (14:30)
[2018-12-28] MEDS ORDERED: PENICILLIN G POTASSIUM 2,500,000 UNIT in DEXTROSE 5%-WATER 50 ML IV SCH (15:21)
--- NOTE | 2018-12-28 15:28 | Admission Physical ---
Datetime Report Generated by CPN: 12/28/2018 15:28 CURRENT ADMISSION Chief Complaint: Other Chief Complaint Other: amy-4.8 cm Indication for Induction: Chronic Primary/Essential HTN; Oligohydramnios Admit Impression : Term, Intrauterine ; No Active Labor Admit Impression- Other: 4.8 cm AMY Admit Plan: Admit to Unit; Initiate Labor Induction Protocol ALLERGIES Medication Allergies: No Medication Allergies: No Known Allergies (12/28/2018) Latex: No Latex Allergies OBSTETRICAL HISTORY EDC: 01/05/2019 00:00 : 4 Para: 2 Term: 2 : 0 SAB: 1 IAB: 0 Livin Gestational Diabetes: No Rh Sensitization: No Incompetent Cervix: No HARJEET: No Infertility: No ART Treatment: No Uterine Anomaly: No IUGR: No Hx Previous C/S: No Macrosomia: No Hx Loss/Stillborn: No PIH: Yes Hx : No Placenta Previa/Abruption: No Depression/PP Depression: No PTL/PROM: No Post Hemorrhage: No Current Procedures: Ultrasound; NST Obstetrical History Comments: G1: 2008 G2: 2016 G3: current SEE RECORDS Alcohol: No Marijuana : No Cocaine: No Other Illicit Drugs: No Cigarettes: Never Smoker. [id number] MEDICAL HISTORY Diabetes: No Blood Transfusion: No Pulmonary Disease (Asthma, TB): No Breast Disease: No Hypertension: No District Supervisor Surgery: No Heart Disease: No Hosp/Surgery: Yes Autoimmune Disorder: No Anesthetic Complications: No Kidney Disease: No Abnormal Pap Smear: No Neuro/Epilepsy: No Psychiatric Disorders: No Other Medical Diseases: No Hepatitis/Liver Disease: No Significant Family History: No Varicosities/Phlebitis: No Trauma/Violence : No Thyroid Dysfunction: No Medical History Comments: cholecystectomy INFECTIOUS HISTORY Gonorrhea: No Genital Herpes: No Chlamydia: No Tuberculosis: No Syphilis: No Hepatitis: No HIV/AIDS Exposure: No Rash or Viral Illness: No PHYSICAL EXAM General: Normal HEENT: Normal Neurologic: Normal Thyroid: Deferred Heart: Normal Lungs: Normal Breast: Deferred Back: Normal Abdomen: Normal Genitourinary Exam: Deferred Extremities: Normal DTRs: Normal Pelvic Type: Adequate Physical Exam Comments: Gravid Vital Signs: Reviewed; Within Normal Limits VAGINAL EXAM Dilatation: 3 Effacement: 50 Station: -2 MEMBRANES Membranes: Intact FETUS A EGA: 38.6 Monitoring: External US FHR- Baseline: 140 Variability: Moderate 6-25bpm Accelerations: 15X15 Decelerations: None FHR Category: Category I Presentation: Vertex Admit Comment: GBS +- Antibiotics given Chronic HTN-b/p normal range Admitted after AMY this am of 4.8cm- Oligohydramnios Reactive tracing Will bein Pitocin after 2nd dose antibx [facility] records available PLANS FOR LABOR AND DELIVERY Labor and Delivery: None Pain Management: Epidural Feeding Preference: Both Benefit of Breast Feed Discussed: Yes Circumcision: N/A INFORMED CONSENT Assignment: Blanca Tse MD Signature: with User ID: Kait : with User ID: Kait : I personally evaluated and examined the patient in conjunction with the MLP and agree with the assessment, treatment plan and disposition.
[2018-12-28 15:39] LABS: APPEARANCE,URINE CLEAR; BILIRUBIN,URINE NEGATIVE (NEGATIVE); COLOR,URINE STRAW; GLUCOSE, URINE NEGATIVE (NEGATIVE); KETONES,URINE NEGATIVE (NEGATIVE); LEUKOCYTE ESTERASE,URINE TRACE (NEGATIVE); NITRITE,URINE NEGATIVE (NEGATIVE); PROTEIN,URINE NEGATIVE (NEGATIVE); URINE SPECIFIC GRAVITY 1.006; UROBILINOGEN,URINE NEGATIVE mg/dL (<2.0)
[2018-12-28] MEDS: PENICILLIN G-K 5 MILLION UNIT VIAL IV SCH ×2 (15:50→19:26)
[2018-12-28 16:00] LABS: URINE AMPHETAMINES SCREEN NEGATIVE; URINE BARBITURATES SCREEN NEGATIVE; URINE BENZODIAZEPINES SCREEN NEGATIVE; URINE COCAINE SCREEN NEGATIVE; URINE MARIJUANA (THC) SCREEN NEGATIVE; URINE METHADONE SCREEN NEGATIVE; URINE PHENCYCLIDINE SCREEN NEGATIVE
[2018-12-28] MEDS ORDERED: EPHEDRINE SULFATE INJ 50 MG/1 ML AMPULE ONE (18:01)
[2018-12-28] MEDS ORDERED: BUPIVACAINE HCL 0.25 % INJ/PF (2.5 MG/1 ML) 30 ML VIAL ONE (18:02)
[2018-12-28] MEDS ORDERED: FENTANYL/BUPIVACAINE/NS/PF 300 MCG/150 ML RTUINJ EPI ONE (18:02)
[2018-12-28] MEDS ORDERED: DIPHENHYDRAMINE HCL 25 MG CAPSULE PO PRN (20:12)
[2018-12-28] MEDS ORDERED: PROMETHAZINE HCL 25 MG TABLET PO PRN (20:12)
[2018-12-28] MEDS ORDERED: PSEUDOEPHEDRINE HCL 30 MG TABLET PO PRN (20:12)
[2018-12-28] MEDS ORDERED: DIPH/PERTUSS(ACELL)/TETANUS VAC/PF 0.5 ML SYR (>=10YO) IM PRN (20:12)
[2018-12-28] MEDS ORDERED: DIBUCAINE 1% OINTMENT 56 GM TP PRN (20:12)
[2018-12-28] MEDS ORDERED: NA PHOS,M-B/NA PHOS,DI-BA (ADULT) 133 ML ENEMA PR PRN (20:12)
[2018-12-28] MEDS ORDERED: MAGNESIUM HYDROXIDE SUSP 30 ML UDCUP PO PRN (20:12)
[2018-12-28] MEDS ORDERED: MEASLES,MUMPS&RUBELLA VACC/PF 0.5 ML VIAL SUBCUT PRN (20:12)
[2018-12-28] MEDS ORDERED: GLYCERIN/WITCH HAZEL LEAF 1 EACH MED..WIPE TP PRN (20:12)
[2018-12-28] MEDS ORDERED: ACETAMINOPHEN WITH CODEINE #3 TABLET PO PRN ×2 (20:12)
[2018-12-28] MEDS ORDERED: ZOLPIDEM TARTRATE 5 MG TABLET PO PRN (20:12)
[2018-12-28] MEDS ORDERED: BENZOCAINE/MENTHOL AEROSOL SPRAY 56 ML TOP PRN (20:12)
[2018-12-28] MEDS ORDERED: ACETAMINOPHEN 325 MG TABLET PO PRN (20:12)
[2018-12-28] MEDS ORDERED: PROMETHAZINE HCL 25 MG SUPP.RECT PR PRN (20:12)
[2018-12-28] MEDS ORDERED: PROMETHAZINE HCL INJ 25 MG/1 ML VIAL IV PRN (20:12)
[2018-12-28] MEDS: IBUPROFEN 800 MG TABLET PO SCH (23:02)
[2018-12-28] MEDS: FAMOTIDINE 20 MG TABLET PO SCH (23:04)
--- NOTE | 2018-12-29 03:33 | Delivery Summary ---
Del Sum A-C Datetime Report Generated by CPN: 12/29/2018 03:33 DELIVERY PERSONNEL DELIVERY PERSONNEL: [id number] Delivery Doctor:: Blanca Tse MD Labor and Delivery Nurse:: Caryl ChamorroMAURO MATERNAL INFORMATION Delivery Anesthesia: Epidural Medications After Delivery: Pitocin Bolus-Please Comment Estimated Blood Loss (ml): 125 Delivery QBL: 101 Delivery QBL Comment: 125 Maternal Complications: None Provider Comments: VFI delivered in JONATHON presentation. tight nuchal cord delivered through. Shoulders and body delivered without difficulty. Cord doubly clamped and cut and infant to maternal abdomen. Placenta delivered intact spontaneously. FF at U. Mother and baby stable upon provider leaving the room. No perineal lacerations. LABOR SUMMARY EDC: 01/05/2019 00:00 No. Babies in Womb: 1 Attempted: No Labor Anesthesia: Epidural LABOR INFORMATION Reason for Induction: Chronic Primary/Essential HTN Onset of Labor: 12/28/2018 18:00 Complete Dilatation: 12/28/2018 20:00 Oxytocin: Induction Group B Beta Strep: positive Antibiotics # of Doses: 3 Antibiotics Time of Last Dose: 193 Name of Antibiotic Given: penicillin Steroids Given: None Reason Steroids Not Administered: Not Applicable MEMBRANES Membranes Rupture Method: Artificial Rupture of Membranes: 12/28/2018 16:25 Length of Rupture (hr): 3.58 Amniotic Fluid Color: Clear Amniotic Fluid Amount: Scant Amniotic Fluid Odor: Normal STAGES OF LABOR Stage 1 hr: 2 Stage 1 min: 0 Stage 2 hr: 0 Stage 2 min: 0 Stage 3 hr: 0 Stage 3 min: 2 Total Time in Labor hr: 2 Total Time in Labor min: 2 VAGINAL DELIVERY Episiotomy: None Laceration #1: None Laceration Extension #1: N/A Laceration Repair: Not Applicable Sponge Count Correct: Yes Sharps Count Correct: Yes BABY A INFORMATION Infant Delivery Date/Time: 12/28/2018 20:00 Method of Delivery: Vaginal Born in Route : No : N/A Forceps: N/A Vacuum Extraction: N/A Shoulder Dystocia : No PRESENTATION/POSITION BABY A Presentation: Cephalic Cephalic Presentation: Vertex Vertex Position: Left Occipital Anterior Breech Presentation: N/A PLACENTA INFORMATION BABY A Placenta Delivery Time : 12/28/2018 20:02 Placenta Method of Delivery: Spontaneous Placenta Status: Delivered SCORES BABY A Heart Rate 1 min: >100 bpm Resp Effort 1 min: Good Cry Reflex Irritability 1 min: Cough or Sneeze or Pulls Away Muscle Tone 1 min: Active Motion Color 1 min: Body [place], Extremities Blue Resuscitation Effort 1 min: Tactile Stimulation SCORE 1 MIN: 9 Heart Rate 5 min: >100 bpm Resp Effort 5 min: Good Cry Reflex Irritability 5 min: Cough or Sneeze or Pulls Away Muscle Tone 5 min: Active Motion Color 5 min: Body [place], Extremities Blue SCORE 5 MIN: 9 INFORMATION BABY A Gestational Age at Delivery: 38.6 Gestational Status: Early Term- 37- 38.6 Weeks Outcome : Liveborn Condition : Stable Infant Sex: Female IDENTIFICATION BABY A Verification Date/Time: 12/28/2018 20:39 ID Band Number: [id number] Mother's Name Verified: Yes Infant RN Verifying : M Curl rn/D [place] RN WEIGHT/LENGTH BABY A Birthweight (gm): 3928 Infant Weight (lb): 8 Infant Weight (oz): 11 Length (in): 20.00 Infant Length (cm): 50.80 CORD INFORMATION BABY A No. Cord Vessels: 3 Nuchal Cord : Around Neck x1, Loose Cord Blood Taken: Yes-For Storage (Mom's Blood type +) Suction: Mouth; Nose ASSESSMENT BABY A Complications: None Physical Findings at Delivery: Molding of the Head Respirations: Appears Normal Handle Sander Operator/ALS Called : No Infant Care By: Fernando Chamorro RN Transferred To: Remains with Mother SIGNATURES Signature: with User ID: [email or web address] : I personally evaluated and examined the patient in conjunction with the MLP and agree with the assessment, treatment plan and disposition.
[2018-12-29] MEDS: IBUPROFEN 800 MG TABLET PO SCH ×3 (05:17→21:31)
[2018-12-29 06:29] LABS: HEMATOCRIT 30.3 % (36.0-47.0); HEMOGLOBIN 9.6 g/dL (12.0-15.5); MEAN CORPUSCULAR HEMOGLOBIN 21.3 pg (27.0-33.4); MEAN CORPUSCULAR HGB CONC 31.7 g/dL (32.0-36.0); MEAN CORPUSCULAR VOLUME 67 fl (80-97); PLATELET COUNT 195 10^3/uL (150-450); RED BLOOD COUNT 4.51 10^6/uL (3.72-5.28); WHITE BLOOD COUNT 9.8 10^3/uL (4.0-10.5)
--- NOTE | 2018-12-29 09:03 | PDOC PROGRESS REPORT ---
Subjective-OB Progress Note for:: 12/29/18 Subjective: Doing well, no c/o, eating well, ambulating Physical Exam (OB) Vital Signs: Temp Pulse Resp BP Pulse Ox 98.6 F 92 16 117/64 100 12/28/18 22:35 12/28/18 22:35 12/28/18 22:35 12/28/18 22:35 12/28/18 22:35 Intake & Output 12/28/18 12/29/18 12/30/18 06:59 06:59 06:59 Intake Total 1250 Balance 1250 Weight 75.6 kg - Lochia Lochia Amount: Small 10-25 ml Lochia Color: Rubra/Red - Abdomen Description: Soft Hernia Present: No Fundal Description: Firm Fundal Height: u/u - u/2 Objective-Diagnostic Laboratory: 12/29/18 05:53 12/28/18 12/28/18 12/28/18 11:20 11:49 11:49 WBC 6.3 RBC 4.89 Hgb 10.3 L Hct 33.0 L MCV 67 L MCH 21.1 L MCHC 31.3 L RDW 18.7 H Plt Count 204 Seg Neutrophils % 75.8 Urine Color STRAW Urine Appearance CLEAR Urine pH 9.0 Ur Specific [place] 1.006 Urine Protein NEGATIVE Urine Glucose (UA) NEGATIVE Urine Ketones NEGATIVE Urine Blood MODERATE H Urine Nitrite NEGATIVE Ur Leukocyte Esterase TRACE H Blood Type B POSITIVE Antibody Screen NEGATIVE 12/29/18 05:53 WBC 9.8 RBC 4.51 Hgb 9.6 L Hct 30.3 L MCV 67 L MCH 21.3 L MCHC 31.7 L RDW 19.0 H Plt Count 195 Seg Neutrophils % Urine Color Urine Appearance Urine pH Ur Specific [place] Urine Protein Urine Glucose (UA) Urine Ketones Urine Blood Urine Nitrite Ur Leukocyte Esterase Blood Type Antibody Screen Assessment and Plan(PN) - Assessment and Plan (1) Anemia Qualifiers: Anemia type: iron deficiency Is this a current diagnosis for this admission?: Yes (2) Carrier of group B Streptococcus Is this a current diagnosis for this admission?: Yes (3) Chronic hypertension affecting Is this a current diagnosis for this admission?: Yes (4) Vaginal delivery Is this a current diagnosis for this admission?: Yes (5) Limited care Qualifiers: Trimester: unspecified trimester Qualified Code(s): O09.30 - Supervision of with insufficient care, unspecified trimester Is this a current diagnosis for this admission?: Yes - Time Spent with Patient Time with patient: Less than 15 minutes Medications reviewed and adjusted accordingly: Yes - Disposition Anticipated Discharge: Home Within: within 24 hours
[2018-12-29] MEDS: FAMOTIDINE 20 MG TABLET PO SCH ×2 (10:50→21:31)
[2018-12-29] MEDS: DOCUSATE SODIUM 100 MG CAPSULE PO SCH ×2 (10:50→17:51)
[2018-12-29] MEDS: FERROUS SULFATE 325 MG TABLET PO SCH ×2 (10:50→17:51)
[2018-12-29] MEDS: PRENATAL VITAMIN W DHA CAPSULE PO SCH (10:50)
[2018-12-29] MEDS: SENNOSIDES/DOCUSATE 8.6-50 MG 1 EACH TABLET PO SCH (10:50)
[2018-12-30] MEDS: IBUPROFEN 800 MG TABLET PO SCH (05:28)
--- NOTE | 2018-12-30 09:25 | PDOC PROGRESS REPORT ---
Subjective-OB Progress Note for:: 12/30/18 Subjective: ready to go home, baby in room, , scant lochia Physical Exam (OB) Vital Signs: Temp Pulse Resp BP Pulse Ox 98.4 F 83 16 125/86 H 100 12/30/18 07:55 12/30/18 07:55 12/30/18 07:55 12/30/18 07:55 12/30/18 07:55 Intake & Output 12/29/18 12/30/18 12/31/18 06:59 06:59 06:59 Intake Total 1250 Balance 1250 Weight 75.6 kg - PIH/Pre-Eclampsia Clonus: Negative Headache: Absent Epigastric Pain: No Visual Changes: No - Lochia Lochia Amount: Small 10-25 ml Lochia Color: Rubra/Red - Abdomen Description: Soft, Round Hernia Present: No Fundal Description: Firm, Midline Fundal Height: u/u - u/2 Objective-Diagnostic Laboratory: 12/29/18 05:53 Assessment and Plan(PN) - Assessment and Plan (1) Anemia Qualifiers: Anemia type: iron deficiency Is this a current diagnosis for this admission?: Yes (2) Carrier of group B Streptococcus Is this a current diagnosis for this admission?: Yes (3) Chronic hypertension affecting Is this a current diagnosis for this admission?: Yes (4) Vaginal delivery Is this a current diagnosis for this admission?: Yes (5) Limited care Qualifiers: Trimester: unspecified trimester Qualified Code(s): O09.30 - Supervision of with insufficient care, unspecified trimester Is this a current diagnosis for this admission?: Yes (6) Non-[place]ic speaking patient Is this a current diagnosis for this admission?: Yes - Time Spent with Patient Time with patient: Less than 15 minutes Medications reviewed and adjusted accordingly: Yes - Disposition Anticipated Discharge: Home Within: within 24 hours
--- NOTE | 2018-12-30 09:29 | PDOC DISCHARGE SUMMARY ---
Impression - Admit/DC Date/PCP Admission Date/Primary Care Provider: 12/28/18 10:12 JOSE D DOWLING CNM Discharge Date: 12/30/18 - Discharge Diagnosis (1) Anemia Is this a current diagnosis for this admission?: Yes (2) Carrier of group B Streptococcus Is this a current diagnosis for this admission?: Yes (3) Chronic hypertension affecting Is this a current diagnosis for this admission?: Yes (4) Vaginal delivery Is this a current diagnosis for this admission?: Yes (5) Limited care Is this a current diagnosis for this admission?: Yes (6) Non-Telugu speaking patient Is this a current diagnosis for this admission?: Yes - Additional Information Resuscitation Status: Full Code Discharge Diet: As Tolerated, Regular Discharge Activity: Activity As Tolerated, Pelvic Rest Referrals: [facility] [Provider Group[facility] ([facility] 2 weeks) Home Medications: Vit,Calc76/Iron/Folic [Pnv 29-1 Tablet] 1 tab PO DAILY 08/13/17 HPI Gestational Age: 38.6 Reason(s) for Admission: Induction of Labor, PIH, Group B Strep Positive Procedures: NST, Ultrasound Intrapartum Procedure(s): Spontaneous Vaginal Delivery - female, wt 8-11, 9 Hospital Course Hospital Course: routine Results Laboratory Results: WBC 9.8 10^3/uL (4.0-10.5) 12/29/18 05:53 RBC 4.51 10^6/uL (3.72-5.28) 12/29/18 05:53 Hgb 9.6 g/dL (12.0-15.5) L 12/29/18 05:53 Hct 30.3 % (36.0-47.0) L 12/29/18 05:53 MCV 67 fl (80-97) L 12/29/18 05:53 MCH 21.3 pg (27.0-33.4) L 12/29/18 05:53 MCHC 31.7 g/dL (32.0-36.0) L 12/29/18 05:53 RDW 19.0 % (11.5-14.0) H 12/29/18 05:53 Plt Count 195 10^3/uL (150-450) 12/29/18 05:53 Lymph % (Auto) 17.0 % (13-45) 12/28/18 11:49 Power % (Auto) 6.1 % (3-13) 12/28/18 11:49 Eos % (Auto) 0.6 % (0-6) 12/28/18 11:49 Baso % (Auto) 0.5 % (0-2) 12/28/18 11:49 Absolute Neuts (auto) 4.8 10^3/uL (1.7-8.2) 12/28/18 11:49 Absolute Lymphs (auto) 1.1 10^3/uL (0.5-4.7) 12/28/18 11:49 Absolute Monos (auto) 0.4 10^3/uL (0.1-1.4) 12/28/18 11:49 Absolute Eos (auto) 0.0 10^3/uL (0.0-0.6) 12/28/18 11:49 Absolute Basos (auto) 0.0 10^3/uL (0.0-0.2) 12/28/18 11:49 Seg Neutrophils % 75.8 % (42-78) 12/28/18 11:49 Urine Color STRAW 12/28/18 11:20 Urine Appearance CLEAR 12/28/18 11:20 Urine pH 9.0 (5.0-9.0) 12/28/18 11:20 Ur Specific [place] 1.006 12/28/18 11:20 Urine Protein NEGATIVE mg/dL (NEGATIVE) 12/28/18 11:20 Urine Glucose (UA) NEGATIVE mg/dL (NEGATIVE) 12/28/18 11:20 Urine Ketones NEGATIVE mg/dL (NEGATIVE) 12/28/18 11:20 Urine Blood MODERATE (NEGATIVE) H 12/28/18 11:20 Urine Nitrite NEGATIVE (NEGATIVE) 12/28/18 11:20 Urine Bilirubin NEGATIVE (NEGATIVE) 12/28/18 11:20 Urine Urobilinogen NEGATIVE mg/dL (<2.0) 12/28/18 11:20 Ur Leukocyte Esterase TRACE (NEGATIVE) H 12/28/18 11:20 Urine Ascorbic Acid NEGATIVE (NEGATIVE) 12/28/18 11:20 Urine Opiates Screen NEGATIVE 12/28/18 11:20 Urine Methadone Screen NEGATIVE 12/28/18 11:20 Ur Barbiturates Screen NEGATIVE 12/28/18 11:20 Ur Phencyclidine Scrn NEGATIVE 12/28/18 11:20 Ur Amphetamines Screen NEGATIVE 12/28/18 11:20 U Benzodiazepines Scrn NEGATIVE 12/28/18 11:20 Urine Cocaine Screen NEGATIVE 12/28/18 11:20 U Marijuana (THC) Screen NEGATIVE 12/28/18 11:20 RPR NONREACTIVE (NONREACTIVE) 12/28/18 11:49 Blood Type B POSITIVE 12/28/18 11:49 Antibody Screen NEGATIVE 12/28/18 11:49 Impressions: Obstetrics Ultrasound 12/28/18 00:00 IMPRESSION: LIMITED OBSTETRICAL ULTRASOUND WITH MEASURED PARAMETERS DELINEATED ABOVE. Trimester of : Third trimester - 28 weeks to delivery. Plan Health Concerns: no Plan of Treatment: d/c home with baby, breastfeed Goals: routine PP Time Spent: Less than 30 Minutes
[2018-12-30] MEDS: DOCUSATE SODIUM 100 MG CAPSULE PO SCH (09:31)
[2018-12-30] MEDS: FAMOTIDINE 20 MG TABLET PO SCH (09:31)
[2018-12-30] MEDS: SENNOSIDES/DOCUSATE 8.6-50 MG 1 EACH TABLET PO SCH (09:31)
[2018-12-30] MEDS: PRENATAL VITAMIN W DHA CAPSULE PO SCH (09:31)
[2018-12-30] MEDS: FERROUS SULFATE 325 MG TABLET PO SCH (09:31)
[2018-12-30] MEDS ORDERED: INFLUENZA QUAD (6MOS+) 2019-20 VAC 0.5 ML SYR IM ONE (10:50)
[2018-12-30 11:06] VITALS: BP 118/82
== END 2018-12-30 13:35 | disposition home or self-care (01) | DRG 806 ==
LOC: LC 07:49 → LR 10:12 → 2S 22:35
PROVIDERS: ADMIT Student in an Organized Health Care Education/Training Program; ATTEND Student in an Organized Health Care Education/Training Program
PROC: 10E0XZZ Delivery of Products of Conception, External Approach (ICD-10-PCS; principal; 2018-12-28)
PROC: 3E0234Z Introduction of Serum, Toxoid and Vaccine into Muscle, Percutaneous Approach (ICD-10-PCS; 2018-12-30)
PROC: 3E0234Z Introduction of Serum, Toxoid and Vaccine into Muscle, Percutaneous Approach (ICD-10-PCS; 2018-12-30)
DX: O10.02 Pre-existing essential hypertension complicating childbirth (principal); O41.03X0 Oligohydramnios, third trimester, not applicable or unspecified; Z37.0 Single live birth; O99.824 Streptococcus B carrier state complicating childbirth; O69.1XX0 Labor and delivery complicated by cord around neck, with compression, not applicable or unspecified; O99.02 Anemia complicating childbirth; D64.9 Anemia, unspecified; Z3A.38 38 weeks gestation of pregnancy; Z23 Encounter for immunization
CPT/HCPCS: 36415; 76815; 80307; 81005; 85025; 85027; 86592; 86850; 86900; 86901; 90686; 90715; J2540; J2590; J3010; J3490